=== PATIENT | male | born 1955 | race Caucasian/White ===

== ENCOUNTER → 2016-10-29 | Outpatient (CLI) | payer OTHER ==
[~2016-10-29] MED LIST: BUPR-79 PO; CLC6 PO; OXYC-57 PO
[2016-10-29 13:20] LABS: MANUAL MICROSCOPIC REQUIRED? NO; REVIEW REQ? NO; URINE APPEARANCE CLEAR (CLEAR); URINE BILIRUBIN NEG (NEG); URINE COLOR YELLOW; URINE EPITHELIAL CELL AUTO 0-5 /lpf (0-5); URINE NITRITE NEG (NEG); URINE SPECIFIC GRAVITY 1.021 (1.000-1.030); UROBILINOGEN NEG (NEG)
[2016-10-29 13:46] LABS: CHOLESTEROL/HDL RATIO 3.3; PROSTATE SPECIFIC ANTIGEN 0.521 ng/ml (0.000-4.000)
== END | disposition home or self-care (01) ==
LOC: C.LAB1850 12:10
PROVIDERS: ATTEND Family Medicine
DX: Z13.220 Encounter for screening for lipoid disorders (principal); R39.9 Unspecified symptoms and signs involving the genitourinary system

== ENCOUNTER → 2016-11-22 | Outpatient (CLI) | payer OTHER ==
[2016-11-22 16:52] LABS: BASO % 0.5 %; BASO ABS # 0.04 K/uL (0-0.2); COMPLETE YES; EOS % 3.4 %; HEMATOCRIT 44.6 % (42-52); IG% 0.1 %; LYMPH % 35.1 %; LYMPH ABS # 2.56 K/uL (1.2-3.4); MEAN CELL VOLUME 87.6 fL (80-100); MEAN CORPUSCULAR HEMOGLOBIN 30.1 pg (25-34); MEAN CORPUSCULAR HGB CONC 34.3 g/dl (32-36); MEAN PLATELET VOLUME 9.6 fL (7.4-10.4); MONO % 9.2 %; NEUT % 51.7 %; PLATELET COUNT 363 K/uL (130-400); RED BLOOD COUNT 5.09 M/uL (4.7-6.1); WHITE BLOOD COUNT 7.29 K/uL (4.8-10.8)
[2016-11-22 16:59] LABS: ALT/SGPT 30 U/L (12-78); AST/SGOT 11 U/L (15-37); BLOOD UREA NITROGEN 21 mg/dl (7-18); CALCIUM 9.6 mg/dl (8.5-10.1); CARBON DIOXIDE 30 mmol/L (21-32); CHLORIDE 109 mmol/L (98-107); GLUCOSE 104 mg/dl (70-99); POTASSIUM 4.5 mmol/L (3.5-5.1); SODIUM 143 mmol/L (136-145)
[2016-11-22 17:02] LABS: ALKALINE PHOSPHATASE 44 U/L (45-117)
[2016-11-26 11:08] LABS: HEPATITIS C VIRAL RNA BY PCR <15 NOT DETECTED IU/ML (<15); HEPATITIS C VIRAL RNA(LOG) PCR <1.18 NOT DETECTED LOG IU/ML (<1.18)
== END | disposition home or self-care (01) ==
LOC: C.LABBC 13:14
PROVIDERS: ATTEND Internal Medicine Infectious Disease
DX: B18.2 Chronic viral hepatitis C (principal)

== ENCOUNTER → 2017-06-23 | Outpatient (CLI) | payer OTHER ==
--- NOTE | 2017-06-23 14:52 | DIAGNOSTIC IMAGING REPORT ---
L RIBS UNILATERAL WITH PA CHEST CLINICAL HISTORY: RIB PAIN ON LEFT SIDE,Z00.00 B18.2 CJ43.9 COMPARISON STUDY: None FINDINGS: Negative study. Left ribs are unremarkable. Lungs are clear. IMPRESSION: No acute process. Negative left ribs. No acute process of the chest. The above report was generated using voice recognition software. It may contain grammatical, syntax or spelling errors. Electronically signed by: Tucker Nam M.D. 06/23/2017 2:50 PM Dictated Date/Time: 06/23/2017 2:48 PM
[2017-06-23 17:29] LABS: BLOOD UREA NITROGEN 19 mg/dl (7-18); BUN/CREATININE RATIO 20.2 (10-20); CALCIUM 9.7 mg/dl (8.5-10.1); CARBON DIOXIDE 26 mmol/L (21-32); CHLORIDE 107 mmol/L (98-107); CHOLESTEROL 169 mg/dl (0-200); CREATININE 0.95 mg/dl (0.60-1.40); GLUCOSE 84 mg/dl (70-99); SODIUM 141 mmol/L (136-145)
[2017-06-23 17:33] LABS: HDL CHOLESTEROL 42 mg/dl; LDL CHOLESTEROL CALCULATED 106 mg/dl; TRIGLYCERIDES 103 mg/dl (0-150); VERY LOW DENSITY LIPOPROT CALC 21 mg/dl
[2017-06-26 15:08] LABS: HEPATITIS C VIRAL RNA BY PCR <15 NOT DETECTED IU/ML (<15); HEPATITIS C VIRAL RNA(LOG) PCR <1.18 NOT DETECTED LOG IU/ML (<1.18)
== END | disposition home or self-care (01) ==
LOC: C.RADBC 13:22
PROVIDERS: ATTEND Physician Assistant Medical
DX: R07.81 Pleurodynia (principal)

== ENCOUNTER → 2017-10-30 | Outpatient (CLI) | payer OTHER ==
--- NOTE | 2017-10-30 10:16 | DIAGNOSTIC IMAGING REPORT ---
ABDOMEN FOR HERNIA CLINICAL HISTORY: 62 years-old Male presenting with RECURRENT UPPER ABD PAIN. TECHNIQUE: Real-time grayscale ultrasound imaging of the abdominal wall was performed for a focused evaluation for ventral hernia. COMPARISON: None. FINDINGS: No sonographic evidence of mass, peritoneal defect, hernia, or intramuscular collection at the site of clinical interest in the left subcostal region. IMPRESSION: 1. No sonographic evidence of ventral hernia at the site of clinical concern. Electronically signed by: Freddie Nguyen M.D. 10/30/2017 10:15 AM Dictated Date/Time: 10/30/2017 10:14 AM
== END | disposition home or self-care (01) ==
LOC: C.ULTRBC 09:46
PROVIDERS: ATTEND Physician Assistant Medical
DX: R10.10 Upper abdominal pain, unspecified (principal)

== ENCOUNTER 2024-07-23 14:12 | Inpatient (IN) ==
--- NOTE | 2024-07-23 14:29 | Emergency Department Note ---
Impression & Plan Closed rib fracture, Calcaneus fracture, right, Fall, Costochondral chest pain ED Provider Note ED Provider Note NAME: AZAR HEIN Sr AGE:68 SEX: Male : 1955 ARRIVES VIA: EMS INFORMANT: Patient ED PROVIDER(s): Ying Araiza DO CHIEF COMPLAINT: Fall off ladder, right ankle pain HPI: This is a 68-year-old male presents emergency department due to concern for injuries after an accidental fall off a ladder. Patient states he was trying to lift a piece of plywood onto the roof and fell from the top of the ladder approximately 8-10 feet up. He states his right foot and ankle struck first, he then landed on his right side. He denies striking his head or losing consciousness. He states the piece of plywood did not land on him nor did the letter. He states he also has pain along the right lower ribs however no difficulty breathing. Patient denies any use of antiplatelet or anticoagulation medication. He denies neck or back pain. He does have prior history of neck problems requiring surgery. He denies any pain to the upper extremities, abdomen, hips, or left lower extremity. PAST MEDICAL HISTORY:See Below PAST SURGICAL HISTORY:See Below FAMILY HISTORY:See Below SOCIAL HISTORY:See Below HOME MEDICATIONS:See Below ALLERGIES:See Below VITALS:See Below PHYSICAL EXAMINATION: GENERAL: alert, well appearing, well nourished, no distress, non-toxic HEAD: nc/at, no meadows signs, no raccoon eyes EYE EXAM: normal conjunctiva, PERRL and EOM's grossly intact OROPHARYNX: no exudate, no erythema, lips, buccal mucosa, and tongue normal and mucous membranes are moist NECK: supple, no nuchal rigidity, no adenopathy, non-tender, FROM LUNGS: Clear to auscultation. Normal chest wall mechanics, no w/r/r HEART: no murmurs, S1 normal and S2 normal CHEST WALL: Increased prominence noted along the right inferior sternal border which is tender to palpation, patient also with tenderness with palpation along the right anterior inferior ribs, no overlying crepitus, no ecchymosis, no step- off ABDOMEN: abdomen soft, non-tender, normo-active bowel sounds, no masses, no rebound or guarding. PELVIS: Stable to compression, nontender with palpation BACK: Back is symmetrical on inspection and there is no deformity, no midline tenderness, no CVA tenderness. SKIN: no rashes, petechiae, orbruising UPPER EXTREMITIES: upper extremities are grossly normal. FROM, nml pulses b/l. LOWER EXTREMITIES: No pitting edema. FROM, nml pulses b/l. NEURO EXAM: Normal sensorium, cranial nerves II-XII grossly intact, normal speech, no facial droop,nogross weakness of arms, no gross weakness of legs. Gross sensation intact. No ataxia. Vital Signs: reviewed and remarkable Differential Diagnosis: ICH, CHI, fracture, contusion, sprain, strain, laceration, abrasions, hemoperitoneum, occult spine injury, acute ligamentous injury, retroperitoneal bleeding, as well as others were considered MEDICAL DECISION MAKING: This is a 68-year-old male who presents emergency department due to concern for injuries following a fall 8 to 10 feet from the top of the ladder. Patient was afebrile and vital signs stable. Initial pain to the chest as well as to the right ankle/foot. Labs drawn and sent, IV established, EKG and x-rays performed at bedside interpreted by me and patient monitored on telemetry. Patient was given IV morphine for pain. Initial x-rays revealed calcaneal fracture of the right foot, and possible right rib fracture. Due to concern for mechanism and risk of injury, he was sent for additional CT imaging. CTs revealed costochondral fracture anteriorly and isolated single right rib fracture. No other acute abnormalities noted on CT imaging. Patient placed in a posterior and sugar-tong splint on the right after discussion with on-call orthopedics via [place] text. Patient given additional IV Tylenol here and did require additional doses of IV morphine for pain control. Given patient was to be nonweightbearing, we did attempt to the patient stand and use crutches. Patient unable to do so due to severity of pain. We discussed inpatient pain management and possible referral for inpatient rehab in the short-term given his injuries. He and who had presented to bedside in the interim were in agreement. Case discussed with the hospitalist team for additional evaluation and management. At this time I have a low suspicion for any additional occult traumatic injury. Consultation(s): 1746: Discussed with Dr. Rodriguez via [place] text, recommends posterior and sugar-tong splinting and nonweightbearing. 1936: Discussed with Dr. Del Valle, [facility] hospitalist team, for additional evaluation and management. ER Treatment Provided: See below Diagnostics Interpreted By Me: -ECG: Normal sinus at 70, first-degree AV block, normal axis, normal intervals, no acute ST/T wave changes -Cardiac Monitoring: An order was placed for continuous cardiac monitoring. The monitor shows a rate of 76 with normal sinus rhythm. -Laboratory studies: As stated above and show below. -Imaging studies: xr Right ankle: Calcaneal fracture Triage Nursing Note Reviewed Prior/Outside Records Reviewed Critical Care: Critical care of 40 min performed to assess and manage high likelihood of life-threatening trauma, involving labs and imaging performed with assessment to evaluate chest pain and right foot pain following a fall diagnosis with frequent reassessment. This time includes bedside time, treatment discussions with patient/family/consultants, documentation time and excludes procedure time. Past Med/Surg History Problem List (Updated 07/23/24 @ 20:39 by Ying Araiza DO) Costochondral chest pain (Acute) Fall (Acute) Calcaneus fracture, right (Acute) Closed rib fracture (Acute) DM type 2 (diabetes mellitus, type 2) (~07/2022) Dyslipidemia COPD with emphysema Bullous emphysema Coronary artery calcification Noted incidentally on CT of chest in 2019 (monitoring of pulm nodules) RHODES (dyspnea on exertion) Impotence, organic Pulmonary nodule Hypersomnia BPH w urinary obs/LUTS Microalbuminuria Medical History Emphysema lung DM type 2 (diabetes mellitus, type 2) (~07/2022) History of COVID-19 Rectal prolapse Internal hemorrhoids Pain, foot, chronic Venous insufficiency of both lower extremities History of tobacco use Dyslipidemia Coronary artery calcification Pericarditis (2016) Degenerative disc disease Cervical spondylosis Chronic viral hepatitis C Peyronie's disease Tinnitus Surgical History History of right cataract surgery H/O umbilical hernia repair (12/26/21) History of tooth extraction History of colonoscopy History of tonsillectomy History of fusion of cervical spine History of arthroscopy of left knee Family History Father Diabetes Heart disease, Onset Age: 56 Cardiac disorder Hypertension Brother Diabetes Hypertension Mother Hypertension Rectal prolapse Other No family history of adverse response to anesthesia Denies family history of Prostate cancer Colorectal cancer Social History Smoking Status: Former smoker Tobacco Type: Cigarettes Age Started Using Tobacco: 17; Age Quit Using Tobacco: 60; packs per day: 1; Second Hand Exposure: No (parents smoked); Do You Dip or Chew Tobacco: No; Hx Alcohol Use: Yes Alcohol type: beer, wine and hard liquor Alcohol Intake Frequency: 2-3 x/Week Hx Substance Use: No Preferred Language: Indonesian Communication Ability: Effective Visual Impairment: Diminished Hearing Ability: Normal Director Of Clinical Education Required: No Beliefs That Will Affect Care: None marital status: Current Living Situation: Family current occupational status: retired How many Children do You have: 1 Feels Safe at Home: Yes Childhood Exposure to Second-Hand Smoke: Yes Diet: regular caffeine: No during the past year weight has: increased > 10 lbs Dental Care, Regularly: Yes Physical Activity Frequency: Does not Exercise Seatbelt Use: always Sunscreen Use: No Do you think of yourself as: straight/heterosexual Assistive Devices: Denture - Upper, Denture - Lower and Glasses Allergies Allergies Allergy/AdvReac Type Severity Reaction Status Date / Time bee venom protein (honey bee) Allergy Severe Anaphylaxis--WASP Verified 03/04/24 09:07 & YELLOW JACKETS No Known Drug Allergies Allergy Verified 03/04/24 09:07 Home Meds Home Medications Medication Instructions Recorded Confirmed metformin 500 mg tablet,extended 500 mg PO DAILY 09/05/23 07/23/24 release 24 hr potassium gluconate 600 mg (99 mg) 600 mg PO DAILY 03/04/24 07/23/24 tablet semaglutide 0.25 mg or 0.5 mg (2 1 mg subcut Q7D 03/04/24 07/23/24 mg/3 mL) subcutaneous pen injector (Ozempic) Vitamin D3 1 tab PO DAILY 07/23/24 07/23/24 tamsulosin 0.4 mg capsule (Flomax) 0.8 mg PO QAM 07/23/24 07/23/24 Previous Rx's Medication Instructions Recorded atorvastatin 10 mg tablet 10 mg PO QAM #90 tabs 01/09/23 epinephrine 0.3 mg/0.3 mL 0.3 mg (0.3 mL) IM Q10M PRN 11/04/22 injection, auto-injector (EpiPen) Anaphylaxis #2 ea omeprazole 20 mg capsule,delayed 20 mg PO DAILY #90 caps 05/13/23 release tiotropium 2.5 mcg-olodaterol 2.5 2 puff inhalation DAILY #4 grams 10/02/23 mcg/actuation mist for inhalation (Stiolto Respimat) Results & Data (ED) Vital Signs Vital Signs - 24 hr 07/23/24 14:19 07/23/24 14:25 07/23/24 16:00 Pulse Rate 74 Pulse Rate [Finger] 74 Pulse Rhythm Regular Pulse Rhythm [Finger] Regular Pulse Strength Normal Pulse Strength [Finger] Normal Respiratory Rate 18 18 18 Respiratory Effort / Characteristics Non-Labored Spontaneous Non-Labored Spontaneous Non-Labored Spontaneous Respiratory Depth Normal Normal Normal Blood Pressure 138/98 Blood Pressure [Left Arm] 138/98 139/94 Blood Pressure Mean 111 Blood Pressure Mean [Left Arm] 111 109 Blood Pressure Position Lying Blood Pressure Position [Left Arm] Lying Sitting Pulse Oximetry 95 95 95 Oxygen Delivery Method Room Air Room Air Room Air Sepsis Recent Fever Within 48 Hours No Sepsis New/Unexplained Change in Mental Status N/A Sepsis Action Taken by Nursing No Action Required 07/23/24 17:30 07/23/24 19:00 07/23/24 20:06 Pulse Rate Pulse Rate [Finger] 72 74 77 Pulse Rhythm Pulse Rhythm [Finger] Regular Regular Pulse Strength Pulse Strength [Finger] Normal Normal Respiratory Rate 19 18 18 Respiratory Effort / Characteristics Non-Labored Spontaneous Non-Labored Spontaneous Respiratory Depth Normal Normal Blood Pressure Blood Pressure [Left Arm] 134/92 162/99 H 135/91 Blood Pressure Mean Blood Pressure Mean [Left Arm] 106 120 105 Blood Pressure Position Blood Pressure Position [Left Arm] Lying Lying Pulse Oximetry 93 96 Oxygen Delivery Method Room Air Room Air Sepsis Recent Fever Within 48 Hours Sepsis New/Unexplained Change in Mental Status Sepsis Action Taken by Nursing Laboratory Data 07/23/24 14:35 07/23/24 14:35 Lab Results 07/23/24 07/23/24 Range/Units 14:35 14:43 WBC 8.89 (4.8-10.8) K/ul RBC 5.06 (4.70-6.10) M/uL Hgb 14.6 (14.0-18.0) g/dl POC Hgb 14.3 (14.0-18.0) g/dl Hct 43.8 (42.0-52.0) % POC Hct 42 (42-52) % MCV 86.6 (80.0-100.0) fL MCH 28.9 (25.0-34.0) pg MCHC 33.3 (32.0-36.0) g/dL RDW Std Deviation 40.2 (36.4-46.3) fL RDW Coeff of Marlena 12.8 (11.5-14.5) % Plt Count 346 (130-400) K/uL MPV 9.7 (9.4-12.4) fL Immature Gran % (Auto) 0.3 % Neut % (Auto) 72.7 % Lymph % (Auto) 17.9 % [place] % (Auto) 6.0 % Eos % (Auto) 2.4 % Baso % (Auto) 0.7 % Neut # (Auto) 6.47 (1.40-6.50) K/uL Lymph # (Auto) 1.59 (1.20-3.40) K/uL [place] # (Auto) 0.53 (0.11-0.59) K/uL Eos # (Auto) 0.21 (0.00-0.50) K/uL Baso # (Auto) 0.06 (0.00-0.20) K/uL Immature Gran # (Auto) 0.03 (0.01-0.20) K/uL PT 10.9 (9.0-12.0) Seconds INR 1.0 (0.9-1.1) POC Sodium 141 (135-144) mmol/L Sodium 140 (136-145) mmol/L POC Potassium 4.4 (3.3-5.0) mmol/L Potassium 4.4 (3.5-5.1) mmol/L POC Chloride 105 (101-112) mmol/L Chloride 107 (98-107) mmol/L Carbon Dioxide 26 (21-32) mmol/L POC Total CO2 24 (24-31) mmol/L Anion Gap 7 (3-11) POC Anion Gap 18.0 (16-25) mmol/L POC BUN 23 H (7-18) mg/dl BUN 22 (6-23) mg/dl Creatinine 1.12 (0.6-1.4) mg/dl POC Creatinine 1.3 (0.6-1.3) mg/dl Est Cr Clr Drug Dosing 75.4 ml/min eGFR 72.45 BUN/Creatinine Ratio 19.6 (10-20) Glucose 129 H (70-99(Fasting)) mg/dl POC Glucose (other) 135 H (70-99) mg/dl Calcium 10.2 (8.6-10.3) mg/dl POC Ioniz Calcium Kristina 1.27 (1.12-1.32) mmol/l Total Bilirubin 0.7 (0.2-1.0) mg/dl AST 20 (13-39) U/L ALT 24 (7-52) U/L Alkaline Phosphatase 50 (34-104) U/L Troponin I High Sens 5.5 (0-20) pg/ml Total Protein 7.1 (6.0-8.3) gm/dl Albumin 4.4 (3.4-5.0) gm/dl Globulin 2.7 (2.5-4.0) gm/dl Albumin/Globulin Ratio 1.6 (0.9-2) Administered Medications Discontinued Medications Acetaminophen (Ofirmev) 1,000 mg in 100 mls @ 400 mls/hr IV NOW STA Stop: 07/23/24 14:48 Last Infusion: 07/23/24 15:39 Dose: Infused Documented By: Admin: 07/23/24 15:10 Dose: 400 mls/hr Documented By: CHRIS Ioversol (Optiray 320 100ml) 93 ml IV ONCE ONE Stop: 07/23/24 16:07 Last Admin: 07/23/24 16:06 Dose: 93 ml Documented By: VIKKI Lidocaine (Lidocaine 5% 1 Patch) 1 patch TD NOW STA Stop: 07/23/24 17:24 Last Admin: 07/23/24 17:28 Dose: 1 patch Documented By: ML Morphine Sulfate (Morphine Sulfate 4 Mg/Ml 1 Ml Carp\Vial) 4 mg IV NOW STA Stop: 07/23/24 17:21 Last Admin: 07/23/24 17:30 Dose: 4 mg Documented By: ML Morphine Sulfate (Morphine Sulfate 4 Mg/Ml 1 Ml Carp\Vial) 4 mg IV NOW STA Stop: 07/23/24 19:35 Last Admin: 07/23/24 19:53 Dose: 4 mg Documented By: EJV Imaging Data Radiologist's Impression: Ankle X-Ray 07/23/24 14:26 XR ankle RT min 3V routine CLINICAL HISTORY: trauma TECHNIQUE: 3 views of the right ankle were obtained. Comparison: None available at the time of this dictation. FINDINGS: There is a fracture of the calcaneus possibly involving the posterior talocalcaneal joint. The joint spaces are well preserved. Soft tissue swelling is seen about the ankle. IMPRESSION: Fracture of the calcaneus with associated soft tissue swelling. The malleoli appear intact. ACT 112: Negative or not required by law. Electronically signed by: Orlando Mcleod M.D. 07/23/2024 3:19 PM Pelvis X-Ray 07/23/24 14:26 XR pelvis 1-2V routine CLINICAL HISTORY: trauma COMPARISON: None FINDINGS: Sacroiliac joints and symphysis pubis are intact. There are no fractures within the pelvis or hips. There are no osseous lesions. Hip joint spaces are preserved. There is a moderate amount of stool within the rectum. IMPRESSION: No fractures within the pelvis or hips. ACT 112: Negative or not required by law. Electronically signed by: Vinicio Adame M.D. 07/23/2024 3:15 PM Ribs w/Chest X-Ray 07/23/24 14:26 AP CHEST WITH RIGHT-SIDED RIB SERIES CLINICAL HISTORY: Trauma. FINDINGS: An AP chest radiograph with 6 additional views from a right-sided rib series is compared to study dated 05/06/2022 and correlated with chest CT dated 07/21/2023. The AP view is significantly degraded by apical lordotic positioning. The heart is enlarged. The pulmonary vasculature is noncongested. Emphysema and chronic interstitial thickening is similar to previous. There is mild bibasilar scarring/atelectasis. No airspace consolidation or pleural effusion is identified. No pneumothorax is seen. The skeletal structures are osteopenic. There is acute appearing fracture of the right anterior 8th rib. No additional findings are suspicious for acute/displaced right-sided rib fracture on rib series. There is a chronic/healed fracture of the right anterior 9th rib. The remainder of the bony thorax is grossly intact. Fusion hardware is seen in the lower cervical spine. IMPRESSION: 1. Cardiomegaly and emphysema with no acute cardiopulmonary abnormality identified. 2. Acute appearing fracture of the right anterior 8th rib. Correlate for point tenderness. ACT 112: Negative or not required by law. Electronically signed by: Deacon Stubbs M.D. 07/23/2024 3:23 PM Abdomen/Pelvis CT 07/23/24 15:06 CT OF THE ABDOMEN AND PELVIS WITH CONTRAST CLINICAL HISTORY: trauma COMPARISON STUDY: Right upper quadrant ultrasound December 20, 2015. TECHNIQUE: Following IV administration of 93 mL of Optiray, axial images of the abdomen and pelvis were obtained from the lung bases to the proximal femurs. Images were reviewed in the axial, sagittal, and coronal planes. IV contrast was administered without complication. Automated exposure control was utilized for the study. A dose lowering technique was utilized adhering to the principles of ALARA. FINDINGS: An acute nondisplaced fracture of the anterior right eighth rib as well as several acute nondisplaced fractures of the right costal cartilages are better depicted on the chest CT. There is hepatic steatosis. No hemoperitoneum or pneumoperitoneum is present. There is no evidence for traumatic injury to the liver, spleen, adrenal glands, kidneys or pancreas. Water attenuation bilateral renal lesions represent cysts. There is no free fluid. No evidence for a bowel obstruction. Colonic diverticulosis without evidence for acute diverticulitis. The appendix is normal. No acute lumbar spine, pelvis or hip fractures are identified anterolisthesis of L5 on S1 is due to bilateral L5 pars defects. This is chronic. IMPRESSION: 1. No evidence for acute traumatic injury to the solid abdominal viscera. 2. Acute nondisplaced fracture of the anterior right eighth rib. Several acute nondisplaced fractures of right costal cartilages. These findings are better depicted on the chest CT which will be reported separately. ACT 112: Negative or not required by law. Electronically signed by: Vinicio Adame M.D. 07/23/2024 4:[address] 07/23/24 15:06 CT SCAN OF THE CERVICAL SPINE CLINICAL HISTORY: Trauma. COMPARISON STUDY: CT of the cervical spine dated 05/23/2024. TECHNIQUE: CT scan of the cervical spine is performed from the skull base to the upper thoracic spine. Images are reviewed in the axial, sagittal, and coronal planes. IV contrast was not administered for this examination. A dose lowering technique was utilized adhering to the principles of ALARA. FINDINGS: Skeletal structures: The skeletal structures are osteopenic. There is no evidence of fracture or subluxation involving the cervical spine. Vertebral body height and alignment are maintained. There is straightening of the cervical lordosis. Postsurgical change from anterior fusion is seen at C5-C6 with near complete bony incorporation at this level. The odontoid process and lateral masses are intact. The atlantoaxial articulation is preserved no destructive degenerative change. The spinous processes appear intact. Intervertebral discs: There is moderate moderate disc space narrowing at C6-C7. Mild narrowing seen at the remaining cervical levels. Central canal: Posterior disc osteophyte complexes at C5-C6 and C6-C7 may contribute to mild acquired compromise of the central canal. Soft tissues: The prevertebral and paraspinous soft tissues are within normal limits. There are calcified sialoliths noted in the parotid glands. Calvarium: The visualized calvarium at the skull base appears intact. Brain parenchyma: Partially visualized brain parenchyma at the skull base is within normal limits. Sinuses and mastoids: There is trace mucosal thickening within the maxillary antra. There is a trace right mastoid effusion. The left mastoid air cells are well pneumatized. Lung apices: Emphysematous change is noted at the apices. IMPRESSION: 1. There is no evidence of cervical spine fracture or subluxation. 2. Osteopenia with postsurgical and spondylotic change as above. 3. Emphysema ACT 112: Negative or not required by law. Electronically signed by: Deacon Stubbs M.D. 07/23/2024 4:[address] 07/23/24 15:06 CT OF THE CHEST WITH IV CONTRAST CLINICAL HISTORY: trauma COMPARISON STUDY: Lung screening CT July 21, 2023. Chest radiograph and right rib series performed earlier today. TECHNIQUE: Following IV administration of 93 mL of Optiray, helical axial images of the chest were obtained. Sagittal and coronal reconstructions were viewed as well as maximal intensity projections on an independent 3-D workstation. Automated exposure control was utilized for the study. A dose lowering technique was utilized adhering to the principles of ALARA. FINDINGS: There is no evidence for traumatic injury to the thoracic aorta. There is no pericardial effusion. No thoracic lymphadenopathy is present. There is no pneumothorax or pleural effusion. A 4 mm right lower lobe nodule on image 186 of 261 is unchanged from earlier exams. There is no pulmonary contusion. Emphysema is again noted. There is no acute thoracic spine fracture. There is an age indeterminate nondisplaced anterior left sixth rib fracture. There is an acute nondisplaced anterior right eighth rib fracture. There are acute fractures of the right fifth, sixth and seventh costal cartilages. Abdomen and pelvis CT will be reported separately. IMPRESSION: 1. No evidence for traumatic injury to the thoracic aorta. 2. Acute nondisplaced fracture of the anterior right eighth rib. Acute nondisplaced fractures of the right fifth, sixth and seventh costal cartilages. No pneumothorax. 3. Age indeterminate nondisplaced anterior left sixth rib fracture. 4. Emphysema. ACT 112: Negative or not required by law. Electronically signed by: Vinicio Adame M.D. 07/23/2024 4:[address] 07/23/24 15:06 CT OF THE HEAD WITHOUT CONTRAST CLINICAL HISTORY: trauma COMPARISON STUDY: Head CT May 23, 2024. CT DOSE: 3599.23 mGy.cm TECHNIQUE: Helical axial images of the head were obtained without IV contrast. Automated exposure control was utilized for the study. A dose lowering technique was utilized adhering to the principles of ALARA. FINDINGS: No acute intracranial hemorrhage, midline shift or mass effect is present. Slight prominence of the extra-axial spaces is unchanged since prior head CT. A hypodense focus within the right basal ganglia is unchanged. This favors an old infarct. The ventricular system is unremarkable. The basal cisterns are patent. No extra-axial collections are present. There are no findings to suggest acute dural sinus thrombosis or acute territorial infarct. No significant calvarial abnormalities are present. Visualized portions of the sinuses and mastoid air cells are clear. IMPRESSION: 1. No acute intracranial findings. No change in appearance of the brain. 2. No calvarial fractures. ACT 112: Negative or not required by law. Electronically signed by: Vinicio Adame M.D. 07/23/2024 4:[address] 07/23/24 15:06 CT lumbar spine w con CLINICAL HISTORY: trauma COMPARISON STUDY: No previous studies for comparison. TECHNIQUE: Axial images of the lumbar spine were obtained. Sagittal and coronal reconstructions were viewed. Automated exposure control was utilized for the study. A dose lowering technique was utilized adhering to the principles of ALARA. FINDINGS: There is 9 mm anterolisthesis of L5 on S1 due to bilateral L5 pars defects. Vertebral body heights are maintained. There are no lumbar spine fractures. There are no osseous lesions. Moderate multilevel facet arthrosis is present. There is severe disc space narrowing with osteophytosis and vacuum disc phenomenon at L5-S1. Please note that the abdomen and pelvis CT will be reported separately. IMPRESSION: 1. No lumbar spine fractures. 2. 9 mm of anterolisthesis of L5 on S1 due to bilateral L5 pars defects. ACT 112: Negative or not required by law. Electronically signed by: Vinicio Adame M.D. 07/23/2024 4:56 PM Knee X-Ray 07/23/24 17:20 XR knee LT 1 or 2V routine CLINICAL HISTORY: trauma, pain COMPARISON: None FINDINGS: Alignment of the left knee is anatomic. There is no acute fracture. There is no joint effusion. Mild left knee osteophytosis is present. There is suspected mild patellofemoral compartment joint space narrowing. IMPRESSION: No fractures within the left knee. No left knee joint effusion. ACT 112: Negative or not required by law. Electronically signed by: Vinicio Adame M.D. 07/23/2024 6:13 PM Tibia/Fibula X-Ray 07/23/24 17:20 XR tibia fibula LT 2V CLINICAL HISTORY: trauma, pain COMPARISON: None FINDINGS: There are no fractures within the left tibia or fibula. There are no osseous lesions. Please note that the left knee radiographs will be reported separately. IMPRESSION: No fractures within the left tibia or fibula. ACT 112: Negative or not required by law. Electronically signed by: Vinicio Adame M.D. 07/23/2024 6:18 PM Discharge Plan Visit Data Chief Complaint: Fall Stated Complaint: Fall ED Provider: Ying Araiza Discharge Problem: Closed rib fracture, Calcaneus fracture, right, Fall, Costochondral chest pain Forms Stand Alone Forms: [employer] Prescriptions Prescriptions: No Action atorvastatin 10 mg tablet 10 mg PO QAM Qty: 90 3RF epinephrine [EpiPen] 0.3 mg/0.3 mL auto-injector 0.3 mg IM Q10M PRN (Reason: Anaphylaxis) Qty: 2 3RF omeprazole 20 mg capsule,delayed release(DR/EC) 20 mg PO DAILY Qty: 90 1RF Stiolto Respimat 2.5-2.5 mcg/actuation mist 2 puff inhalation DAILY Qty: 4 12RF metformin 500 mg tablet extended release 24 hr 500 mg PO DAILY Ozempic 0.25 mg or 0.5 mg (2 mg/3 mL) pen injector 1 mg subcut Q7D Rx Instructions: Tuesdays at 10 am potassium gluconate 600 mg (99 mg) tablet 600 mg PO DAILY Rx Instructions: Take 1 po daily tamsulosin [Flomax] 0.4 mg Capsule 0.8 mg PO QAM Vitamin D3 1 tab PO DAILY Referrals Referrals: Kiera Pang PA-C [Primary Care Provider] -
[2024-07-23 14:55] LABS: iSTAT Creatinine 1.3 mg/dl (0.6-1.3); iSTAT Hemoglobin 14.3 g/dl (14.0-18.0); iSTAT Ionized Calcium 1.27 mmol/l (1.12-1.32); iSTAT Potassium 4.4 mmol/L (3.3-5.0)
[2024-07-23] MEDS: ACETAMINOPHEN 1,000 MG/100 ML VIAL IV STA (15:10)
--- NOTE | 2024-07-23 15:17 | XRay Report ---
XR pelvis 1-2V routine CLINICAL HISTORY: trauma COMPARISON: None FINDINGS: Sacroiliac joints and symphysis pubis are intact. There are no fractures within the pelvis or hips. There are no osseous lesions. Hip joint spaces are preserved. There is a moderate amount of stool within the rectum. IMPRESSION: No fractures within the pelvis or hips. ACT 112: Negative or not required by law. Electronically signed by: Vinicio Adame M.D. 07/23/2024 3:15 PM
--- NOTE | 2024-07-23 15:20 | XRay Report ---
XR ankle RT min 3V routine CLINICAL HISTORY: trauma TECHNIQUE: 3 views of the right ankle were obtained. Comparison: None available at the time of this dictation. FINDINGS: There is a fracture of the calcaneus possibly involving the posterior talocalcaneal joint. The joint spaces are well preserved. Soft tissue swelling is seen about the ankle. IMPRESSION: Fracture of the calcaneus with associated soft tissue swelling. The malleoli appear intact. ACT 112: Negative or not required by law. Electronically signed by: Orlando Mcleod M.D. 07/23/2024 3:19 PM
--- NOTE | 2024-07-23 15:24 | XRay Report ---
AP CHEST WITH RIGHT-SIDED RIB SERIES CLINICAL HISTORY: Trauma. FINDINGS: An AP chest radiograph with 6 additional views from a right-sided rib series is compared to study dated 05/06/2022 and correlated with chest CT dated 07/21/2023. The AP view is significantly deg raded by apical lordotic positioning. The heart is enlarged. The pulmonary vasculature is noncongeste d. Emphysema and chronic interstitial thickening is similar to previous. There is mild bibasilar scar ring/atelectasis. No airspace consolidation or pleural effusion is identified. No pneumothorax is see n. The skeletal structures are osteopenic. There is acute appearing fracture of the right anterior 8t h rib. No additional findings are suspicious for acute/displaced right-sided rib fracture on rib seri es. There is a chronic/healed fracture of the right anterior 9th rib. The remainder of the bony thora x is grossly intact. Fusion hardware is seen in the lower cervical spine. IMPRESSION: 1. Cardiomegaly and emphysema with no acute cardiopulmonary abnormality identified. 2. Acute appearing fracture of the right anterior 8th rib. Correlate for point tenderness. ACT 112: Negative or not required by law. Electronically signed by: Deacon Stubbs M.D. 07/23/2024 3:23 PM
[2024-07-23] MEDS: OPTIRAY 320 100ml IV ONE (16:06)
--- NOTE | 2024-07-23 16:27 | CT Scan Report ---
CT OF THE HEAD WITHOUT CONTRAST CLINICAL HISTORY: trauma COMPARISON STUDY: Head CT May 23, 2024. CT DOSE: 3599.23 mGy.cm TECHNIQUE: Helical axial images of the head were obtained without IV contrast. Automated exposure con trol was utilized for the study. A dose lowering technique was utilized adhering to the principles o f ALARA. FINDINGS: No acute intracranial hemorrhage, midline shift or mass effect is present. Slight prominenc e of the extra-axial spaces is unchanged since prior head CT. A hypodense focus within the right basa l ganglia is unchanged. This favors an old infarct. The ventricular system is unremarkable. The basal cisterns are patent. No extra-axial collections are present. There are no findings to suggest acute dural sinus thrombosis or acute territorial infarct. No significant calvarial abnormalities are prese nt. Visualized portions of the sinuses and mastoid air cells are clear. IMPRESSION: 1. No acute intracranial findings. No change in appearance of the brain. 2. No calvarial fractures. ACT 112: Negative or not required by law. Electronically signed by: Vinicio Adame M.D. 07/23/2024 4:26 PM
--- NOTE | 2024-07-23 16:28 | CT Scan Report ---
CT SCAN OF THE CERVICAL SPINE CLINICAL HISTORY: Trauma. COMPARISON STUDY: CT of the cervical spine dated 05/23/2024. TECHNIQUE: CT scan of the cervical spine is performed from the skull base to the upper thoracic spine . Images are reviewed in the axial, sagittal, and coronal planes. IV contrast was not administered fo r this examination. A dose lowering technique was utilized adhering to the principles of ALARA. FINDINGS: Skeletal structures: The skeletal structures are osteopenic. There is no evidence of fracture or subl uxation involving the cervical spine. Vertebral body height and alignment are maintained. There is st raightening of the cervical lordosis. Postsurgical change from anterior fusion is seen at C5-C6 with near complete bony incorporation at this level. The odontoid process and lateral masses are intact. T he atlantoaxial articulation is preserved no destructive degenerative change. The spinous processes a ppear intact. Intervertebral discs: There is moderate moderate disc space narrowing at C6-C7. Mild narrowing seen a t the remaining cervical levels. Central canal: Posterior disc osteophyte complexes at C5-C6 and C6-C7 may contribute to mild acquired compromise of the central canal. Soft tissues: The prevertebral and paraspinous soft tissues are within normal limits. There are calci fied sialoliths noted in the parotid glands. Calvarium: The visualized calvarium at the skull base appears intact. Brain parenchyma: Partially visualized brain parenchyma at the skull base is within normal limits. Sinuses and mastoids: There is trace mucosal thickening within the maxillary antra. There is a trace right mastoid effusion. The left mastoid air cells are well pneumatized. Lung apices: Emphysematous change is noted at the apices. IMPRESSION: 1. There is no evidence of cervical spine fracture or subluxation. 2. Osteopenia with postsurgical and spondylotic change as above. 3. Emphysema ACT 112: Negative or not required by law. Electronically signed by: Deacon Stubbs M.D. 07/23/2024 4:26 PM
--- NOTE | 2024-07-23 16:38 | CT Scan Report ---
CT OF THE CHEST WITH IV CONTRAST CLINICAL HISTORY: trauma COMPARISON STUDY: Lung screening CT July 21, 2023. Chest radiograph and right rib series performe d earlier today. TECHNIQUE: Following IV administration of 93 mL of Optiray, helical axial images of the chest were o btained. Sagittal and coronal reconstructions were viewed as well as maximal intensity projections o n an independent 3-D workstation. Automated exposure control was utilized for the study. A dose low ering technique was utilized adhering to the principles of ALARA. FINDINGS: There is no evidence for traumatic injury to the thoracic aorta. There is no pericardial e ffusion. No thoracic lymphadenopathy is present. There is no pneumothorax or pleural effusion. A 4 mm right lower lobe nodule on image 186 of 261 is unchanged from earlier exams. There is no pulmonary c ontusion. Emphysema is again noted. There is no acute thoracic spine fracture. There is an age indete rminate nondisplaced anterior left sixth rib fracture. There is an acute nondisplaced anterior right eighth rib fracture. There are acute fractures of the right fifth, sixth and seventh costal cartilage s. Abdomen and pelvis CT will be reported separately. IMPRESSION: 1. No evidence for traumatic injury to the thoracic aorta. 2. Acute nondisplaced fracture of the anterior right eighth rib. Acute nondisplaced fractures of the right fifth, sixth and seventh costal cartilages. No pneumothorax. 3. Age indeterminate nondisplaced anterior left sixth rib fracture. 4. Emphysema. ACT 112: Negative or not required by law. Electronically signed by: Vinicio Adame M.D. 07/23/2024 4:37 PM
--- NOTE | 2024-07-23 16:56 | CT Scan Report ---
CT OF THE ABDOMEN AND PELVIS WITH CONTRAST CLINICAL HISTORY: trauma COMPARISON STUDY: Right upper quadrant ultrasound December 20, 2015. TECHNIQUE: Following IV administration of 93 mL of Optiray, axial images of the abdomen and pelvis we re obtained from the lung bases to the proximal femurs. Images were reviewed in the axial, sagittal, and coronal planes. IV contrast was administered without complication. Automated exposure control wa s utilized for the study. A dose lowering technique was utilized adhering to the principles of ALARA . FINDINGS: An acute nondisplaced fracture of the anterior right eighth rib as well as several acute no ndisplaced fractures of the right costal cartilages are better depicted on the chest CT. There is hep atic steatosis. No hemoperitoneum or pneumoperitoneum is present. There is no evidence for traumatic injury to the liver, spleen, adrenal glands, kidneys or pancreas. Water attenuation bilateral renal l esions represent cysts. There is no free fluid. No evidence for a bowel obstruction. Colonic divertic ulosis without evidence for acute diverticulitis. The appendix is normal. No acute lumbar spine, pelv is or hip fractures are identified anterolisthesis of L5 on S1 is due to bilateral L5 pars defects. T his is chronic. IMPRESSION: 1. No evidence for acute traumatic injury to the solid abdominal viscera. 2. Acute nondisplaced fracture of the anterior right eighth rib. Several acute nondisplaced fractures of right costal cartilages. These findings are better depicted on the chest CT which will be reporte d separately. ACT 112: Negative or not required by law. Electronically signed by: Vinicio Adame M.D. 07/23/2024 4:53 PM
--- NOTE | 2024-07-23 16:57 | CT Scan Report ---
CT lumbar spine w con CLINICAL HISTORY: trauma COMPARISON STUDY: No previous studies for comparison. TECHNIQUE: Axial images of the lumbar spine were obtained. Sagittal and coronal reconstructions were viewed. Automated exposure control was utilized for the study. A dose lowering technique was utilize d adhering to the principles of ALARA. FINDINGS: There is 9 mm anterolisthesis of L5 on S1 due to bilateral L5 pars defects. Vertebral body heights are maintained. There are no lumbar spine fractures. There are no osseous lesions. Moderate m ultilevel facet arthrosis is present. There is severe disc space narrowing with osteophytosis and vac uum disc phenomenon at L5-S1. Please note that the abdomen and pelvis CT will be reported separately. IMPRESSION: 1. No lumbar spine fractures. 2. 9 mm of anterolisthesis of L5 on S1 due to bilateral L5 pars defects. ACT 112: Negative or not required by law. Electronically signed by: Vinicio Adame M.D. 07/23/2024 4:56 PM
[2024-07-23 17:15] LABS: Basophils # (auto) 0.06 K/uL (0.00-0.20); Basophils % (auto) 0.7 %; Eosinophils # (auto) 0.21 K/uL (0.00-0.50); Eosinophils % (auto) 2.4 %; Hematocrit (blood only) 43.8 % (42.0-52.0); Hemoglobin 14.6 g/dl (14.0-18.0); Immature Granulocytes # (auto) 0.03 K/uL (0.01-0.20); Immature Granulocytes % (auto) 0.3 %; Lymphocytes # (auto) 1.59 K/uL (1.20-3.40); Lymphocytes % (auto) 17.9 %; Mean Corpuscular Hemoglobin 28.9 pg (25.0-34.0); Mean Corpuscular Hgb Conc 33.3 g/dL (32.0-36.0); Mean Corpuscular Volume 86.6 fL (80.0-100.0); Mean Platelet Volume 9.7 fL (9.4-12.4); Monocytes # (auto) 0.53 K/uL (0.11-0.59); Neutrophils # (auto) 6.47 K/uL (1.40-6.50); Neutrophils % (auto) 72.7 %; Platelet Count 346 K/uL (130-400); RDW Coefficient of Variation 12.8 % (11.5-14.5); RDW Standard Deviation 40.2 fL (36.4-46.3); Red Blood Count 5.06 M/uL (4.70-6.10); White Blood Count 8.89 K/ul (4.8-10.8)
[2024-07-23 17:20] LABS: Albumin Globulin Ratio 1.6 (0.9-2); Albumin Level 4.4 gm/dl (3.4-5.0); BUN Creatinine Ratio 19.6 (10-20); Bilirubin,Total 0.7 mg/dl (0.2-1.0); Calcium 10.2 mg/dl (8.6-10.3); Creatinine Clr Calc Pharmacy 75.4 ml/min; Globulin 2.7 gm/dl (2.5-4.0); Potassium 4.4 mmol/L (3.5-5.1); Total Protein 7.1 gm/dl (6.0-8.3)
[2024-07-23 17:26] LABS: Troponin I High Sensitivity 5.5 pg/ml (0-20)
[2024-07-23] MEDS: LIDOCAINE 5% 1 PATCH TD STA (17:28)
[2024-07-23] MEDS: MoRPHine SULFATE 4 MG/ML 1 ML CARP\\VIAL IV STA ×2 (17:30→19:53)
[2024-07-23 17:35] LABS: Prothrombin Time 10.9 Seconds (9.0-12.0)
--- NOTE | 2024-07-23 18:14 | XRay Report ---
XR knee LT 1 or 2V routine CLINICAL HISTORY: trauma, pain COMPARISON: None FINDINGS: Alignment of the left knee is anatomic. There is no acute fracture. There is no joint effu fabiola. Mild left knee osteophytosis is present. There is suspected mild patellofemoral compartment trip nt space narrowing. IMPRESSION: No fractures within the left knee. No left knee joint effusion. ACT 112: Negative or not required by law. Electronically signed by: Vinicio Adame M.D. 07/23/2024 6:13 PM
--- NOTE | 2024-07-23 18:19 | XRay Report ---
XR tibia fibula LT 2V CLINICAL HISTORY: trauma, pain COMPARISON: None FINDINGS: There are no fractures within the left tibia or fibula. There are no osseous lesions. Plea se note that the left knee radiographs will be reported separately. IMPRESSION: No fractures within the left tibia or fibula. ACT 112: Negative or not required by law. Electronically signed by: Vinicio Adame M.D. 07/23/2024 6:18 PM
--- NOTE | 2024-07-23 19:33 | History & Physical Report ---
Date of Service July 23, 2024 Assessment & Plan (1) Fall: Plan: Fall -Patient slipped while trying [employer] plywood while on a ladder. Fell onto his right heel which was outstretched, and then hit his ribs on the ladder as he went down. Did not hit his head or lose consciousness CThead: No intracranial abnormalities CTC-spine: No acute fracture/subluxation CTA/P: No acute intra-abdominal abnormality. No solid organ injury of the abdominal viscera. Acute nondisplaced right eighth rib fracture and costal cartilage fractures. X-ray pelvis: No fracture of the pelvis or hips No lumbar spine fractures For right calcaneal fracture posterior splint with stirrup placed, nonweightbearing on the right lower extremity. Orthopedics consulted. Rib binder ordered for rib fracture, no evidence of flail chest is present. PT/OT consulted, CM consulted. 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 Takes Ozempic on Tuesdays Metformin held while inpatient Basal deferred due to weekly Ozempic use Continue SSI Goal BSG [id number] Last A1c well-controlled 6.8% (5) COPD with emphysema: Plan: COPD Gold class B Continue Stiolto No acute exacerbation, no acute change in management (6) Coronary artery calcification: Plan: Coronary calcification Without myocardial ischemia, with an active lifestyle, no medical CAD Statin continued Patient is not on any antiplatelet agent EKG: Normal sinus rhythm without acute territorial ischemic change Plan DVT prophylaxis: Prophylaxis deferred immediately following trauma, may add pharmacologic prophylaxis 07/24 Diet: Regular Disposition: PCU post trauma alert, may downgrade to MedSur 07/24 if doing well CODE STATUS: Full code History of Present Illness Primary Care Provider: Kiera Pang PA-C Baltazar is a 68-year-old male with a past medical history of type 2 diabetes, COPD, CAD, BPH with LUTS who is not on any antiplatelet agents or anticoagulants who was on a ladder when he lost his balance and slipped. This caused him to fall down he landed with his right leg extended and then fell to the right side. No head strike or loss of consciousness. Patient was evaluated by orthopedics. Patient was stable for discharge however due to nonweightbearing on the right extremity and pain from the rib fracture limited ability to use crutches was not able to ambulate independently and has been recommended for admission and placement. Baltazar is seen at the bedside. 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 He did not hit his head or lose consciousness. He has no headache. No lightheadedness, dizziness. He does have pain in his right ribs where he hit them on the ladder. He has no left-sided chest pain and has no anginal symptoms. He reports he is very active and has had no limiting chest pain although sometimes gets some shortness of breath with his emphysema. Former smoker. Rare social alcohol use. No abdominal pain. He is not able to bear weight on his right leg due to discomfort in splint. Does have some pain on the outer portion of his left lower leg which feels sore. He takes no anticoagulants or antiplatelet agents. Medical History: Reviewed Medications: Reviewed Surgical History: Reviewed Family history: Reviewed Allergies: Reviewed Social History: Former smoker. Rare social ETOH Code Status: Full Allergies Allergy/AdvReac Type Severity Reaction Status Date / Time bee venom protein (honey bee) Allergy Severe Anaphylaxis--WASP Verified 03/04/24 09:07 & YELLOW JACKETS No Known Drug Allergies Allergy Verified 03/04/24 09:07 Home Medications Medication Instructions Recorded Confirmed Type atorvastatin 10 mg tablet 10 mg PO QAM #90 tabs 10/07/22 07/23/24 Rx epinephrine 0.3 mg/0.3 mL 0.3 mg (0.3 mL) IM Q10M PRN 11/04/22 07/23/24 Rx injection, auto-injector (EpiPen) Anaphylaxis #2 ea omeprazole 20 mg capsule,delayed 20 mg PO DAILY #90 caps 05/13/23 07/23/24 Rx release metformin 500 mg tablet,extended 500 mg PO DAILY 09/05/23 07/23/24 History release 24 hr tiotropium 2.5 mcg-olodaterol 2.5 2 puff inhalation DAILY #4 grams 10/02/23 07/23/24 Rx mcg/actuation mist for inhalation (Stiolto Respimat) potassium gluconate 600 mg (99 mg) 600 mg PO DAILY 03/04/24 07/23/24 History tablet semaglutide 0.25 mg or 0.5 mg (2 1 mg subcut Q7D 03/04/24 07/23/24 History mg/3 mL) subcutaneous pen injector (Ozempic) Vitamin D3 1 tab PO DAILY 07/23/24 07/23/24 History tamsulosin 0.4 mg capsule (Flomax) 0.8 mg PO QAM 07/23/24 07/23/24 History Past Med/Surg History Problem List (Updated 07/23/24 @ 19:40 by Ying Araiza DO) Fall (Acute) Calcaneus fracture, right (Acute) Closed rib fracture (Acute) DM type 2 (diabetes mellitus, type 2) (~07/2022) Dyslipidemia COPD with emphysema Bullous emphysema Coronary artery calcification Noted incidentally on CT of chest in 2019 (monitoring of pulm nodules) RHODES (dyspnea on exertion) Impotence, organic Pulmonary nodule Hypersomnia BPH w urinary obs/LUTS Microalbuminuria Medical History Emphysema lung DM type 2 (diabetes mellitus, type 2) (~07/2022) History of COVID-19 Rectal prolapse Internal hemorrhoids Pain, foot, chronic Venous insufficiency of both lower extremities History of tobacco use Dyslipidemia Coronary artery calcification Pericarditis (2016) Degenerative disc disease Cervical spondylosis Chronic viral hepatitis C Peyronie's disease Tinnitus Surgical History History of right cataract surgery H/O umbilical hernia repair (12/26/21) History of tooth extraction History of colonoscopy History of tonsillectomy History of fusion of cervical spine History of arthroscopy of left knee Family History Father Diabetes Heart disease, Onset Age: 56 Cardiac disorder Hypertension Brother Diabetes Hypertension Mother Hypertension Rectal prolapse Other No family history of adverse response to anesthesia Denies family history of Prostate cancer Colorectal cancer Social History Smoking Status: Former smoker Tobacco Type: Cigarettes Age Started Using Tobacco: 17; Age Quit Using Tobacco: 60; packs per day: 1; Second Hand Exposure: No (parents smoked); Do You Dip or Chew Tobacco: No; Hx Alcohol Use: Yes Alcohol type: beer, wine and hard liquor Alcohol Intake Frequency: 2-3 x/Week Hx Substance Use: No Preferred Language: Grenadian Communication Ability: Effective Visual Impairment: Diminished Hearing Ability: Normal 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 NAD. Cooperative. Pleasant, thought process linear and goal- directed HEENT: Atraumatic, normocephalic. Vision and hearing grossly intact. Pupils equal and reactive to light. Pulm: CTAB A&P. -wheezes, -rales, -rhonchi. Symmetrical chest rise. No increased work of breathing. No respiratory distress. Thorax: Tenderness to palpation overlying right anterior eighth rib and at the right parasternal border. No signs of flail chest. Cardiac: RRR, -mrg. Radial pulses intact and symmetrical. Abdominal: Nontender, nondistended, soft. BS present. Extremity: Right lower extremity with splint in place around ankle and foot. Able to wiggle toes without difficulty. Sensation to soft touch intact in toes and bottom of the foot bilaterally. DP pulse intact to palpation bilaterally. Cap refill brisk in the hallux bilaterally. Results & Data Results & Data Vital Signs (Past 12 Hours) Vital Signs Pulse Pulse Resp BP BP Pulse Ox O2 Del Method 07/23/24 17:30 72 19 134/92 93 Room Air 07/23/24 16:00 18 139/94 95 Room Air 07/23/24 14:25 74 18 138/98 95 Room Air 07/23/24 14:19 74 18 138/98 95 Room Air PG Care Time/CCT Total # of Minutes Spent Total Time Spent with Patient: Total time spent is greater than 50% in coordination of care (as documented) at patient's floor/unit and/or counseling patient: Coding Level of Care Code 07188 INT INP/OBS CARE 75MIN Diagnoses Fall W19.XXXA Calcaneus fracture, right S92.001A Closed rib fracture S22.39XA Type 2 diabetes mellitus without complication, without long-term current use of insulin E11.9 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
[2024-07-23] MEDS ORDERED: GLUCOSE 10 TAB/TUBE PO PRN (19:56)
[2024-07-23] MEDS ORDERED: GLUCAGON FOR INJ 1 MG VIAL SQ PRN (19:56)
[2024-07-23] MEDS ORDERED: DEXTROSE 50% 50 ML SYRINGE IV PRN (19:56)
[2024-07-23] MEDS ORDERED: GLUCOSE 40% GEL 15 GM TUBE PO PRN (19:56)
[2024-07-23] MEDS ORDERED: CARBOHYDRATES FOR HYPOGLYCEMIA PO PRN (19:56)
--- NOTE | 2024-07-23 20:17 | Electrocardiogram Report ---
Test Reason : Blood Pressure : */* mmHG Vent. Rate : 70 BPM Atrial Rate : 70 BPM P-R Int : 208 ms QRS Dur : 92 ms QT Int : 364 ms P-R-T Axes : 55 -13 20 degrees QTcB Int : 393 ms Normal sinus rhythm Inferior infarct (cited on or before 13-Aug-2022) Abnormal ECG When compared with ECG of 13-Aug-2022 18:02, No significant change was found Confirmed by Deep Muhammad ([id number]) on 07/23/2024 8:17:02 PM Referred By: Confirmed By: Deep Muhammad
[2024-07-23] MEDS: INSULIN ASPART PER UNIT CHARGE SC SCH (21:10)
[2024-07-23] MEDS: ACETAMINOPHEN 500 MG TAB PO PRN (21:40)
[2024-07-23] MEDS: MoRPHine SULFATE 2 MG/ML CARP IV PRN (23:10)
[2024-07-24] MEDS ORDERED: HYDROmorphone INJ 1 MG/ML SYRINGE IV PRN (00:07)
[2024-07-24] MEDS: KETOROLAC TROMETHAMINE 15 MG/ML VIAL IV ONE (00:19)
[2024-07-24] MEDS: HYDROmorphone INJ 0.5 MG/0.5 ML SYR IV PRN ×2 (00:20→13:30)
[2024-07-24] MEDS: ACETAMINOPHEN 500 MG TAB PO SCH (05:49)
[2024-07-24 07:52] LABS: Basophils # (auto) 0.05 K/uL (0.00-0.20); Basophils % (auto) 0.6 %; Eosinophils # (auto) 0.26 K/uL (0.00-0.50); Hemoglobin 13.7 g/dl (14.0-18.0); Immature Granulocytes # (auto) 0.02 K/uL (0.01-0.20); Immature Granulocytes % (auto) 0.2 %; Lymphocytes # (auto) 1.92 K/uL (1.20-3.40); Lymphocytes % (auto) 22.3 %; Mean Corpuscular Hemoglobin 29.8 pg (25.0-34.0); Mean Corpuscular Hgb Conc 35.1 g/dL (32.0-36.0); Monocytes # (auto) 0.78 K/uL (0.11-0.59); Monocytes % (auto) 9.1 %; Neutrophils # (auto) 5.58 K/uL (1.40-6.50); Neutrophils % (auto) 64.8 %; Platelet Count 300 K/uL (130-400); RDW Coefficient of Variation 12.8 % (11.5-14.5); RDW Standard Deviation 39.1 fL (36.4-46.3); Red Blood Count 4.59 M/uL (4.70-6.10); White Blood Count 8.61 K/ul (4.8-10.8)
[2024-07-24 08:07] LABS: BUN Creatinine Ratio 16.7 (10-20); Calcium 9.2 mg/dl (8.6-10.3); Creatinine Clr Calc Pharmacy 76.6 ml/min
[2024-07-24] MEDS: ATORVASTATIN 10 MG TAB PO SCH (08:38)
[2024-07-24] MEDS: TAMSULOSIN HCL 0.4 MG CAP PO SCH (08:38)
[2024-07-24] MEDS: PANTOprazole 40 MG TAB PO SCH (08:38)
[2024-07-24] MEDS: UMECLIDINIUM/VILANTEROL 62.5/25MCG 7 PUFFS/INHALER INH SCH (08:39)
--- NOTE | 2024-07-24 10:38 | Orthopedic Consultation ---
<Statement entered by Ferddie Rodriguez MD - 07/24/24 12:54> ` Patient seen and evaluated. Complains of right sided rib pain and right heel pain. He is able to do a leg lift and bend his knee without difficulty. The right leg is in a well-padded splint. He can wiggle his toes has intact sensation in the lesser toes although he notes chronic numbness due to neuropathy in the left big toe. DP pulses 1+ capillary refill less than [address] scan is pending. X-rays of the right ankle show a displaced calcaneal fracture. Recommend nonweightbearing elevation icing. Surgery likely indicated. Probably not done on an acute basis. We could set him up with Dr. Ray or one of the foot and ankle specialist at [place]. He may seek care through the [facility]. We will follow-up regarding this. He will eventually need DVT prophylaxis if not already given. Date of Consultation July 24, 2024 Assessment & Plan (1) Calcaneus fracture, right: Patient has a right calcaneus fracture. Suspect some comminution. Will obtain a CT scan of the right calcaneus to further evaluate fracture pattern in preparation for surgical intervention. This could potentially be treated with closed care versus open duction internal fixation. Recommended referral to a foot and ankle specialist. He would like this to be done through the [facility]. He states he is waiting to hear from them. He will notify them of this to set him up with a foot and ankle specialist of their choice. We can also assist with referring him to possibly Dr. Ray from [facility] or down to [place] for a foot and ankle specialist there. In the meantime he needs to be nonweightbearing on the right leg at all times. He can use crutches or walker or even a wheelchair. Encourage strict elevation of the right lower extremity. Elevate above his heart at all times on 3-4 pillows. Keep the splint on at all times. Keep it clean and dry. Allowed for knee hip and toe range of motion as tolerated. Ice to right ankle as needed for pain or swelling. No surgical intervention is planned for right now. He may have a regular diet. Will follow-up with him in a day or so during his inpatient stay to determine referral decisions. Typically surgical intervention may not be performed for 7 to 21 days after calcaneus fracture due to significant swelling. Pain medication as ordered. History of Present Illness Reason for Consultation: Right calcaneal fracture Attending Physician: Freddie Del Valle MD History of Present Illness Patient is a pleasant 68-year-old male who was brought to the emergency room after falling off a ladder. He states that was about 8 steps high and he was at the very top of the ladder. He was trying to put a 2 x 4 on top of the roof and it slipped and he and the ladder toppled over. He had immediate pain on the right side of his ribs as well as his right heel. He was unable to bear weight. He was brought to the emergency room. X-rays were taken he was found to have a right calcaneus fracture. He was admitted by the medical service also for multiple rib fractures. He states today that he only things that bother him or his ribs and his heel. He has been placed in a splint. He is elevated on a couple of pillows. Has been out of bed but has been using crutches and not putting any weight on the right foot. He denies any numbness or tingling. Denies any previous problems with the right foot or ankle. He states that [facility] Allergies Allergy/AdvReac Type Severity Reaction Status Date / Time bee venom protein (honey bee) Allergy Severe Anaphylaxis--WASP Verified 03/04/24 09:07 & YELLOW JACKETS No Known Drug Allergies Allergy Verified 03/04/24 09:07 Home Medications Medication Instructions Recorded Confirmed Type atorvastatin 10 mg tablet 10 mg PO QAM #90 tabs 10/07/22 07/23/24 Rx epinephrine 0.3 mg/0.3 mL 0.3 mg (0.3 mL) IM Q10M PRN 11/04/22 07/23/24 Rx injection, auto-injector (EpiPen) Anaphylaxis #2 ea omeprazole 20 mg capsule,delayed 20 mg PO DAILY #90 caps 05/13/23 07/23/24 Rx release metformin 500 mg tablet,extended 500 mg PO DAILY 09/05/23 07/23/24 History release 24 hr tiotropium 2.5 mcg-olodaterol 2.5 2 puff inhalation DAILY #4 grams 10/02/23 07/23/24 Rx mcg/actuation mist for inhalation (Stiolto Respimat) potassium gluconate 600 mg (99 mg) 600 mg PO DAILY 03/04/24 07/23/24 History tablet semaglutide 0.25 mg or 0.5 mg (2 1 mg subcut Q7D 03/04/24 07/23/24 History mg/3 mL) subcutaneous pen injector (Ozempic) Vitamin D3 1 tab PO DAILY 07/23/24 07/23/24 History tamsulosin 0.4 mg capsule (Flomax) 0.8 mg PO QAM 07/23/24 07/23/24 History Patient History Medical History Emphysema lung History of COVID-19 08/2021 headache, fever, cough, sob; c/o ongoing "mild lung congestion" NO HOSPITAL Rectal prolapse Internal hemorrhoids Pain, foot, chronic Venous insufficiency of both lower extremities History of tobacco use Quit 2015 Pericarditis (2015) H/o - follows with Dr. Brown Degenerative disc disease Cervical spondylosis Chronic viral hepatitis C Treated and in remission Peyronie's disease Tinnitus Bilateral Surgical History History of right cataract surgery H/O umbilical hernia repair (12/26/21) Open Umbilical Hernia Repair - Maldonado Jacobson DO, FACS 12/26/2021 History of tooth extraction all teeth History of colonoscopy History of tonsillectomy History of fusion of cervical spine normal ROM History of arthroscopy of left knee X3 Family History Father Diabetes Heart disease, Onset Age: 56 Heart attack Cardiac disorder Hypertension Brother Diabetes Hypertension Mother Hypertension Rectal prolapse Other No family history of adverse response to anesthesia Denies family history of Prostate cancer Colorectal cancer Social History Smoking Status: Former smoker Tobacco Type: Cigarettes Age Started Using Tobacco: 17; Age Quit Using Tobacco: 60; packs per day: 1; Second Hand Exposure: No (parents smoked); Do You Dip or Chew Tobacco: No; Hx Alcohol Use: Yes Alcohol type: beer, wine and hard liquor Alcohol Intake Frequency: 2-3 x/Week Hx Substance Use: Yes Preferred Language: Frisian Communication Ability: Effective Visual Impairment: Diminished Hearing Ability: Normal Mailroom Assistant Required: No Beliefs That Will Affect Care: None marital status: Current Living Situation: Other Current Living Situation Comment: 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 The splint is adequate. His toes move freely. Capillary fill is brisk. He has diminished sensation which is chronic for him in the right great toe but normal sensation throughout the 2nd through 5th toes. Dorsalis pedis pulses 1+. Mild edema into the dorsum of the foot. He is able to independently straight leg raise his right leg without discomfort. He has no joint effusion to the right knee. Full range of motion of the knee. Normal sensation throughout the right upper thigh. Tolerates right hip range of motion without discomfort. Skin: Splint was not removed to look at the skin around the calcaneus but visible skin is healthy and intact. Results & Data Vital Signs (Past 12 Hours) Vital Signs Temp Pulse Pulse Resp BP Pulse Ox O2 Del Method 07/24/24 07:37 69 07/24/24 07:22 36.6 C 69 19 132/72 91 Room Air 07/24/24 03:09 36.7 C 64 18 121/73 92 Room Air 07/23/24 23:03 81 07/23/24 22:43 36.5 C 75 18 145/88 H 93 Room Air Laboratory Results 07/24/24 07/24/24 07/24/24 Range/Units 11:19 07:27 07:24 WBC 8.61 (4.8-10.8) K/ul RBC 4.59 L (4.70-6.10) M/uL Hgb 13.7 L (14.0-18.0) g/dl POC Hgb (14.0-18.0) g/dl Hct 39.0 L (42.0-52.0) % POC Hct (42-52) % MCV 85.0 (80.0-100.0) fL MCH 29.8 (25.0-34.0) pg MCHC 35.1 (32.0-36.0) g/dL RDW Std Deviation 39.1 (36.4-46.3) fL RDW Coeff of Marlena 12.8 (11.5-14.5) % Plt Count 300 (130-400) K/uL MPV 9.0 L (9.4-12.4) fL Immature Gran % (Auto) 0.2 % Neut % (Auto) 64.8 % Lymph % (Auto) 22.3 % [place] % (Auto) 9.1 % Eos % (Auto) 3.0 % Baso % (Auto) 0.6 % Neut # (Auto) 5.58 (1.40-6.50) K/uL Lymph # (Auto) 1.92 (1.20-3.40) K/uL [place] # (Auto) 0.78 H (0.11-0.59) K/uL Eos # (Auto) 0.26 (0.00-0.50) K/uL Baso # (Auto) 0.05 (0.00-0.20) K/uL Immature Gran # (Auto) 0.02 (0.01-0.20) K/uL PT (9.0-12.0) Seconds INR (0.9-1.1) POC Sodium (135-144) mmol/L Sodium 136 (136-145) mmol/L POC Potassium (3.3-5.0) mmol/L Potassium 4.0 (3.5-5.1) mmol/L POC Chloride (101-112) mmol/L Chloride 102 (98-107) mmol/L Carbon Dioxide 30 (21-32) mmol/L POC Total CO2 (24-31) mmol/L Anion Gap 4 (3-11) POC Anion Gap (16-25) mmol/L POC BUN (7-18) mg/dl BUN 18 (6-23) mg/dl Creatinine 1.08 (0.6-1.4) mg/dl POC Creatinine (0.6-1.3) mg/dl Est Cr Clr Drug Dosing 76.6 ml/min eGFR 75.68 BUN/Creatinine Ratio 16.7 (10-20) Glucose 91 (70-99(Fasting)) mg/dl POC Glucose 98 94 (70-99) mg/dl POC Glucose (other) (70-99) mg/dl Calcium 9.2 (8.6-10.3) mg/dl POC Ioniz Calcium Kristina (1.12-1.32) mmol/l Total Bilirubin (0.2-1.0) mg/dl AST (13-39) U/L ALT (7-52) U/L Alkaline Phosphatase (34-104) U/L Troponin I High Sens (0-20) pg/ml Total Protein (6.0-8.3) gm/dl Albumin (3.4-5.0) gm/dl Globulin (2.5-4.0) gm/dl Albumin/Globulin Ratio (0.9-2) 07/23/24 07/23/24 07/23/24 Range/Units 21:08 14:43 14:35 WBC 8.89 (4.8-10.8) K/ul RBC 5.06 (4.70-6.10) M/uL Hgb 14.6 (14.0-18.0) g/dl POC Hgb 14.3 (14.0-18.0) g/dl Hct 43.8 (42.0-52.0) % POC Hct 42 (42-52) % MCV 86.6 (80.0-100.0) fL MCH 28.9 (25.0-34.0) pg MCHC 33.3 (32.0-36.0) g/dL RDW Std Deviation 40.2 (36.4-46.3) fL RDW Coeff of Marlena 12.8 (11.5-14.5) % Plt Count 346 (130-400) K/uL MPV 9.7 (9.4-12.4) fL Immature Gran % (Auto) 0.3 % Neut % (Auto) 72.7 % Lymph % (Auto) 17.9 % [place] % (Auto) 6.0 % Eos % (Auto) 2.4 % Baso % (Auto) 0.7 % Neut # (Auto) 6.47 (1.40-6.50) K/uL Lymph # (Auto) 1.59 (1.20-3.40) K/uL [place] # (Auto) 0.53 (0.11-0.59) K/uL Eos # (Auto) 0.21 (0.00-0.50) K/uL Baso # (Auto) 0.06 (0.00-0.20) K/uL Immature Gran # (Auto) 0.03 (0.01-0.20) K/uL PT 10.9 (9.0-12.0) Seconds INR 1.0 (0.9-1.1) POC Sodium 141 (135-144) mmol/L Sodium 140 (136-145) mmol/L POC Potassium 4.4 (3.3-5.0) mmol/L Potassium 4.4 (3.5-5.1) mmol/L POC Chloride 105 (101-112) mmol/L Chloride 107 (98-107) mmol/L Carbon Dioxide 26 (21-32) mmol/L POC Total CO2 24 (24-31) mmol/L Anion Gap 7 (3-11) POC Anion Gap 18.0 (16-25) mmol/L POC BUN 23 H (7-18) mg/dl BUN 22 (6-23) mg/dl Creatinine 1.12 (0.6-1.4) mg/dl POC Creatinine 1.3 (0.6-1.3) mg/dl Est Cr Clr Drug Dosing 75.4 ml/min eGFR 72.45 BUN/Creatinine Ratio 19.6 (10-20) Glucose 129 H (70-99(Fasting)) mg/dl POC Glucose 76 (70-99) mg/dl POC Glucose (other) 135 H (70-99) mg/dl Calcium 10.2 (8.6-10.3) mg/dl POC Ioniz Calcium Kristina 1.27 (1.12-1.32) mmol/l Total Bilirubin 0.7 (0.2-1.0) mg/dl AST 20 (13-39) U/L ALT 24 (7-52) U/L Alkaline Phosphatase 50 (34-104) U/L Troponin I High Sens 5.5 (0-20) pg/ml Total Protein 7.1 (6.0-8.3) gm/dl Albumin 4.4 (3.4-5.0) gm/dl Globulin 2.7 (2.5-4.0) gm/dl Albumin/Globulin Ratio 1.6 (0.9-2) Diagnostic Findings Ankle X-Ray 07/23/24 14:26 XR ankle RT min 3V routine CLINICAL HISTORY: trauma TECHNIQUE: 3 views of the right ankle were obtained. Comparison: None available at the time of this dictation. FINDINGS: There is a fracture of the calcaneus possibly involving the posterior talocalcaneal joint. The joint spaces are well preserved. Soft tissue swelling is seen about the ankle. IMPRESSION: Fracture of the calcaneus with associated soft tissue swelling. The malleoli appear intact. ACT 112: Negative or not required by law. Electronically signed by: Orlando Mcleod M.D. 07/23/2024 3:19 PM Pelvis X-Ray 07/23/24 14:26 XR pelvis 1-2V routine CLINICAL HISTORY: trauma COMPARISON: None FINDINGS: Sacroiliac joints and symphysis pubis are intact. There are no fractures within the pelvis or hips. There are no osseous lesions. Hip joint spaces are preserved. There is a moderate amount of stool within the rectum. IMPRESSION: No fractures within the pelvis or hips. ACT 112: Negative or not required by law. Electronically signed by: Vinicio Adame M.D. 07/23/2024 3:15 PM Ribs w/Chest X-Ray 07/23/24 14:26 AP CHEST WITH RIGHT-SIDED RIB SERIES CLINICAL HISTORY: Trauma. FINDINGS: An AP chest radiograph with 6 additional views from a right-sided rib series is compared to study dated 05/06/2022 and correlated with chest CT dated 07/21/2023. The AP view is significantly degraded by apical lordotic positioning. The heart is enlarged. The pulmonary vasculature is noncongested. Emphysema and chronic interstitial thickening is similar to previous. There is mild bibasilar scarring/atelectasis. No airspace consolidation or pleural effusion is identified. No pneumothorax is seen. The skeletal structures are osteopenic. There is acute appearing fracture of the right anterior 8th rib. No additional findings are suspicious for acute/displaced right-sided rib fracture on rib series. There is a chronic/healed fracture of the right anterior 9th rib. The remainder of the bony thorax is grossly intact. Fusion hardware is seen in the lower cervical spine. IMPRESSION: 1. Cardiomegaly and emphysema with no acute cardiopulmonary abnormality identified. 2. Acute appearing fracture of the right anterior 8th rib. Correlate for point tenderness. ACT 112: Negative or not required by law. Electronically signed by: Deacon Stubbs M.D. 07/23/2024 3:23 PM Abdomen/Pelvis CT 07/23/24 15:06 CT OF THE ABDOMEN AND PELVIS WITH CONTRAST CLINICAL HISTORY: trauma COMPARISON STUDY: Right upper quadrant ultrasound December 20, 2015. TECHNIQUE: Following IV administration of 93 mL of Optiray, axial images of the abdomen and pelvis were obtained from the lung bases to the proximal femurs. Images were reviewed in the axial, sagittal, and coronal planes. IV contrast was administered without complication. Automated exposure control was utilized for the study. A dose lowering technique was utilized adhering to the principles of ALARA. FINDINGS: An acute nondisplaced fracture of the anterior right eighth rib as well as several acute nondisplaced fractures of the right costal cartilages are better depicted on the chest CT. There is hepatic steatosis. No hemoperitoneum or pneumoperitoneum is present. There is no evidence for traumatic injury to the liver, spleen, adrenal glands, kidneys or pancreas. Water attenuation bilateral renal lesions represent cysts. There is no free fluid. No evidence for a bowel obstruction. Colonic diverticulosis without evidence for acute diverticulitis. The appendix is normal. No acute lumbar spine, pelvis or hip fractures are identified anterolisthesis of L5 on S1 is due to bilateral L5 pars defects. This is chronic. IMPRESSION: 1. No evidence for acute traumatic injury to the solid abdominal viscera. 2. Acute nondisplaced fracture of the anterior right eighth rib. Several acute nondisplaced fractures of right costal cartilages. These findings are better depicted on the chest CT which will be reported separately. ACT 112: Negative or not required by law. Electronically signed by: Vinicio Adame M.D. 07/23/2024 4:[address] 07/23/24 15:06 CT SCAN OF THE CERVICAL SPINE CLINICAL HISTORY: Trauma. COMPARISON STUDY: CT of the cervical spine dated 05/23/2024. TECHNIQUE: CT scan of the cervical spine is performed from the skull base to the upper thoracic spine. Images are reviewed in the axial, sagittal, and coronal planes. IV contrast was not administered for this examination. A dose lowering technique was utilized adhering to the principles of ALARA. FINDINGS: Skeletal structures: The skeletal structures are osteopenic. There is no evidence of fracture or subluxation involving the cervical spine. Vertebral body height and alignment are maintained. There is straightening of the cervical lordosis. Postsurgical change from anterior fusion is seen at C5-C6 with near complete bony incorporation at this level. The odontoid process and lateral masses are intact. The atlantoaxial articulation is preserved no destructive degenerative change. The spinous processes appear intact. Intervertebral discs: There is moderate moderate disc space narrowing at C6-C7. Mild narrowing seen at the remaining cervical levels. Central canal: Posterior disc osteophyte complexes at C5-C6 and C6-C7 may contribute to mild acquired compromise of the central canal. Soft tissues: The prevertebral and paraspinous soft tissues are within normal limits. There are calcified sialoliths noted in the parotid glands. Calvarium: The visualized calvarium at the skull base appears intact. Brain parenchyma: Partially visualized brain parenchyma at the skull base is within normal limits. Sinuses and mastoids: There is trace mucosal thickening within the maxillary antra. There is a trace right mastoid effusion. The left mastoid air cells are well pneumatized. Lung apices: Emphysematous change is noted at the apices. IMPRESSION: 1. There is no evidence of cervical spine fracture or subluxation. 2. Osteopenia with postsurgical and spondylotic change as above. 3. Emphysema ACT 112: Negative or not required by law. Electronically signed by: Deacon Stubbs M.D. 07/23/2024 4:[address] 07/23/24 15:06 CT OF THE CHEST WITH IV CONTRAST CLINICAL HISTORY: trauma COMPARISON STUDY: Lung screening CT July 21, 2023. Chest radiograph and right rib series performed earlier today. TECHNIQUE: Following IV administration of 93 mL of Optiray, helical axial images of the chest were obtained. Sagittal and coronal reconstructions were viewed as well as maximal intensity projections on an independent 3-D workstation. Automated exposure control was utilized for the study. A dose lowering technique was utilized adhering to the principles of ALARA. FINDINGS: There is no evidence for traumatic injury to the thoracic aorta. There is no pericardial effusion. No thoracic lymphadenopathy is present. There is no pneumothorax or pleural effusion. A 4 mm right lower lobe nodule on image 186 of 261 is unchanged from earlier exams. There is no pulmonary contusion. Emphysema is again noted. There is no acute thoracic spine fracture. There is an age indeterminate nondisplaced anterior left sixth rib fracture. There is an acute nondisplaced anterior right eighth rib fracture. There are acute fractures of the right fifth, sixth and seventh costal cartilages. Abdomen and pelvis CT will be reported separately. IMPRESSION: 1. No evidence for traumatic injury to the thoracic aorta. 2. Acute nondisplaced fracture of the anterior right eighth rib. Acute nondisplaced fractures of the right fifth, sixth and seventh costal cartilages. No pneumothorax. 3. Age indeterminate nondisplaced anterior left sixth rib fracture. 4. Emphysema. ACT 112: Negative or not required by law. Electronically signed by: Vinicio Adame M.D. 07/23/2024 4:[address] 07/23/24 15:06 CT OF THE HEAD WITHOUT CONTRAST CLINICAL HISTORY: trauma COMPARISON STUDY: Head CT May 23, 2024. CT DOSE: 3599.23 mGy.cm TECHNIQUE: Helical axial images of the head were obtained without IV contrast. Automated exposure control was utilized for the study. A dose lowering technique was utilized adhering to the principles of ALARA. FINDINGS: No acute intracranial hemorrhage, midline shift or mass effect is present. Slight prominence of the extra-axial spaces is unchanged since prior head CT. A hypodense focus within the right basal ganglia is unchanged. This favors an old infarct. The ventricular system is unremarkable. The basal cisterns are patent. No extra-axial collections are present. There are no findings to suggest acute dural sinus thrombosis or acute territorial infarct. No significant calvarial abnormalities are present. Visualized portions of the sinuses and mastoid air cells are clear. IMPRESSION: 1. No acute intracranial findings. No change in appearance of the brain. 2. No calvarial fractures. ACT 112: Negative or not required by law. Electronically signed by: Vinicio Adame M.D. 07/23/2024 4:[address] 07/23/24 15:06 CT lumbar spine w con CLINICAL HISTORY: trauma COMPARISON STUDY: No previous studies for comparison. TECHNIQUE: Axial images of the lumbar spine were obtained. Sagittal and coronal reconstructions were viewed. Automated exposure control was utilized for the study. A dose lowering technique was utilized adhering to the principles of ALARA. FINDINGS: There is 9 mm anterolisthesis of L5 on S1 due to bilateral L5 pars defects. Vertebral body heights are maintained. There are no lumbar spine fractures. There are no osseous lesions. Moderate multilevel facet arthrosis is present. There is severe disc space narrowing with osteophytosis and vacuum disc phenomenon at L5-S1. Please note that the abdomen and pelvis CT will be reported separately. IMPRESSION: 1. No lumbar spine fractures. 2. 9 mm of anterolisthesis of L5 on S1 due to bilateral L5 pars defects. ACT 112: Negative or not required by law. Electronically signed by: Vinicio Adame M.D. 07/23/2024 4:56 PM Knee X-Ray 07/23/24 17:20 XR knee LT 1 or 2V routine CLINICAL HISTORY: trauma, pain COMPARISON: None FINDINGS: Alignment of the left knee is anatomic. There is no acute fracture. There is no joint effusion. Mild left knee osteophytosis is present. There is suspected mild patellofemoral compartment joint space narrowing. IMPRESSION: No fractures within the left knee. No left knee joint effusion. ACT 112: Negative or not required by law. Electronically signed by: Vinicio Adame M.D. 07/23/2024 6:13 PM Tibia/Fibula X-Ray 07/23/24 17:20 XR tibia fibula LT 2V CLINICAL HISTORY: trauma, pain COMPARISON: None FINDINGS: There are no fractures within the left tibia or fibula. There are no osseous lesions. Please note that the left knee radiographs will be reported separately. IMPRESSION: No fractures within the left tibia or fibula. ACT 112: Negative or not required by law. Electronically signed by: Vinicio Adame M.D. 07/23/2024 6:18 PM (1) Calcaneus fracture, right Encounter type: initial encounter Calcaneus location: body Fracture type: closed
[2024-07-24] MEDS: POTASSIUM CHLORIDE CRTAB 20 MEQ TABCR PO SCH (10:40)
--- NOTE | 2024-07-24 11:12 | Hospitalist Progress Note ---
Date of Service July 24, 2024 Assessment & Plan (1) Fall: Plan: Fall, right calcaneal fracture/closed right eighth rib fracture -Patient slipped while trying to hoist plywood while on a ladder. Fell onto his right heel which was outstretched, and then hit his ribs on the ladder as he went down. Did not hit his head or lose consciousness CThead: No intracranial abnormalities CTC-spine: No acute fracture/subluxation CTA/P: No acute intra-abdominal abnormality. No solid organ injury of the abdominal viscera. Acute nondisplaced right eighth rib fracture and costal cartilage fractures. X-ray pelvis: No fracture of the pelvis or hips No lumbar spine fractures For right calcaneal fracture posterior splint with stirrup placed, nonweightbearing on the right lower extremity. Orthopedics consulted. PT/OT consulted, CM consulted. Due to nonweightbearing status of the right leg, some discomfort in his left leg, and difficulty using the crutches due to pain in his rib is not able to ambulate at baseline and will need at least short-term rehab Multimodal pain control, Tylenol, scaled hydromoprhine for breakthrough pain, continue lidocaine patch. [facility] was called to update on patient admission status. They are aware that he is pending placement and currently hemodynamically stable. 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 Continue Stiolto No acute exacerbation, no acute change in management (6) Coronary artery calcification: Plan: Coronary calcification Without myocardial ischemia, with an active lifestyle, no medical CAD Statin continued Patient is not on any antiplatelet agent EKG: Normal sinus rhythm without acute territorial ischemic change Plan DVT prophylaxis: Prophylaxis deferred immediately following trauma, may add pharmacologic prophylaxis 07/24 Diet: Regular Disposition: PCU post trauma alert, may downgrade to [facility] 07/24 if doing well CODE STATUS: Full code Admission and Anticipated Discharge Date Admission Date: July 23, 2024 Subjective Doing well at the bedside. Had increased pain overnight was switched to hydromorphone for breakthrough pain by overnight resident, he reports that this does help control his pain for around 3 to 4 hours. Pain does not seem worse today. Still has limited ambulation due to discomfort while using crutches and nonweightbearing of his right leg. Placement pending, CM following. [facility], they may wish to have him transferred to their facility while pending placement versus patient remaining until placement is available Physical Exam Physical Exam: General: A&Ox3. NAD. Cooperative. HEENT: Atraumatic, normocephalic. Vision and hearing grossly intact. Pupils equal and reactive to light. Pulm: CTAB A&P. -wheezes, -rales, -rhonchi. Symmetrical chest rise. No increased work of breathing. No respiratory distress. Thorax: Remains with tenderness to palpation overlying right anterior eighth rib and at the right parasternal border. No signs of flail chest. Cardiac: RRR, -mrg. Radial pulses intact and symmetrical. Extremity: Right lower extremity with splint in place around ankle and foot. Able to wiggle toes without difficulty. No signs of vascular compromise Results & Data Results & Data Vital Signs (Past 12 Hours) Vital Signs Temp Pulse Pulse Resp BP Pulse Ox O2 Del Method 07/24/24 07:37 69 07/24/24 07:22 36.6 C 69 19 132/72 91 Room Air 07/24/24 03:09 36.7 C 64 18 121/73 92 Room Air PG Care Time/CCT Total # of Minutes Spent Total Time Spent with Patient: Total time spent is greater than 50% in coordination of care (as documented) at patient's floor/unit and/or counseling patient: Coding Level of Care Code 29436 SUB INP/OBS CARE 2/35MIN Diagnoses Fall W19.XXXA Calcaneus fracture, right S92.001A Closed rib fracture S22.39XA Type 2 diabetes mellitus without complication, without long-term current use of insulin E11.9 Diabetes mellitus termite exterminator insulin use: without termite exterminator use Diabetes mellitus complication status: without complication COPD with emphysema J43.9 Coronary artery calcification I25.10; I25.84 (4) DM type 2 (diabetes mellitus, type 2) Diabetes mellitus correction insulin use: without termite exterminator use Diabetes mellitus complication status: without complication Qualified Code(s): E11.9 - Type 2 diabetes mellitus without complications
--- NOTE | 2024-07-24 12:05 | CT Scan Report ---
CT SCAN OF THE RIGHT ANKLE WITHOUT IV CONTRAST CLINICAL HISTORY: Calcaneal fracture. COMPARISON STUDY: Radiographs of the right ankle dated 07/23/2024. TECHNIQUE: CT scan of the right ankle is performed from the distal tibia and fibula to the base of th e foot. Images are reviewed in the axial, sagittal, and coronal planes. IV contrast was not administe red for this examination. 3-D reformats are created and assessed. A dose lowering technique was utili zed adhering to the principles of ALARA. CT DOSE: 444.81 mGy.cm FINDINGS: The skeletal structures are well-mineralized. No fracture is seen at the ankle joint. The a nkle mortise is intact. No osteochondral defect is suggested in the talar dome. There is a tiny avuls ion fracture seen along the inferior/medial aspect of the talus on axial image #117. There is a commi nuted fracture of the calcaneus with numerous displaced fragments. A component of the fracture extend s through the base of the anterior process. Fracture involves the superior and inferior cortex, as we ll as the medial and lateral cortex. There is only mild loss of height of the calcaneus. There is off set of the basal fragments by approximately 9 mm. Fracture involve the sustentaculum yoli at several sites. There is offset of the articular surface dorsally with the anterior fragments depressed by valente roximately 3 mm. Additional fragments are seen posterior to the talus. Hemorrhage is seen around the calcaneal fractures. There is a tiny avulsion fracture at the dorsal/lateral base of the cuboid, seen on sagittal image #36. There is no offset at the second tarsometatarsal joint or widening between th e base of the first and second metatarsals to suggest Lisfranc type injury. Diffuse soft tissue edema is present around the ankle and hindfoot. The Achilles tendon is intact as visualized by CT. IMPRESSION: 1. Complex comminuted calcaneal fracture as detailed above with large displaced fragments, mild loss of height, and surrounding hemorrhage. 2. There are also tiny avulsion fractures off the talus and cuboid. 3. No fracture is seen at the ankle joint. ACT 112: Negative or not required by law. Dictated: 07/24/2024 11:18 AM Transcribed: 07/24/2024 11:35 AM Toribio [id number] [facility] Electronically signed by: Deacon Stubbs M.D. 07/24/2024 12:03 PM
[2024-07-24] MEDS: POLYETHYLENE (MIRALAX) 17 GM PACK PO PRN (12:50)
[2024-07-24] MEDS: oxyCODONE HCL 10 MG TABCR (OxyCONTIN) PO PRN (12:50)
[2024-07-24] MEDS: CHOLECALCIFEROL 10 MCG (400 UNITS) TAB PO SCH (12:50)
[2024-07-24] MEDS ORDERED: ENOXAPARIN INJ 40 MG/0.4 ML SYR SQ SCH (13:00)
[2024-07-24] MEDS: CALCIUM CARBONATE 500 MG CHEWABLE TAB PO PRN (22:38)
[2024-07-25 06:55] LABS: Basophils # (auto) 0.05 K/uL (0.00-0.20); Basophils % (auto) 0.5 %; Eosinophils % (auto) 1.9 %; Hematocrit (blood only) 43.2 % (42.0-52.0); Hemoglobin 14.7 g/dl (14.0-18.0); Immature Granulocytes # (auto) 0.03 K/uL (0.01-0.20); Immature Granulocytes % (auto) 0.3 %; Lymphocytes # (auto) 1.57 K/uL (1.20-3.40); Lymphocytes % (auto) 15.2 %; Mean Corpuscular Hemoglobin 29.2 pg (25.0-34.0); Mean Corpuscular Volume 85.7 fL (80.0-100.0); Mean Platelet Volume 9.1 fL (9.4-12.4); Monocytes # (auto) 0.78 K/uL (0.11-0.59); Monocytes % (auto) 7.5 %; Neutrophils # (auto) 7.73 K/uL (1.40-6.50); Neutrophils % (auto) 74.6 %; Platelet Count 315 K/uL (130-400); RDW Coefficient of Variation 12.7 % (11.5-14.5); RDW Standard Deviation 39.7 fL (36.4-46.3); Red Blood Count 5.04 M/uL (4.70-6.10); White Blood Count 10.36 K/ul (4.8-10.8)
[2024-07-25 07:17] LABS: BUN Creatinine Ratio 15.5 (10-20); Calcium 9.5 mg/dl (8.6-10.3); Creatinine Clr Calc Pharmacy 85.6 ml/min; Potassium 3.9 mmol/L (3.5-5.1)
[2024-07-25] MEDS ORDERED: VITAMIN D3 PO SCH (09:00)
--- NOTE | 2024-07-25 09:47 | Orthopedic Progress Note ---
Date of Service July 25, 2024 Assessment & Plan (1) Calcaneus fracture, right: Plan: Findings discussed with patient. I would recommend that he consult with a foot and ankle specialist about ORIF. We could arrange here with Dr. Ray if he desires. The other options would be through the [place] or at [place]. For now he will elevate ice and remain nonweightbearing. Some general parameters of surgical treatment are discussed. [facility] He is on Lovenox for DVT prophylaxis. Admission and Anticipated Discharge Date Admission Date: July 23, 2024 Orthopedic Progress Note Comfortable. Feels swelling is less. Pain manageable. The foot is elevated. Capillary refills less than 2 seconds. He can wiggle his toes. CT scan is reviewed which reveals a displaced calcaneal fracture with varus alignment of the heel and impaction of the posterior facet. There is a nondisplaced fracture through the facet otherwise it is mainly in 1 large fragment. H&H stable today (1) Calcaneus fracture, right Calcaneus location: body Encounter type: initial encounter Fracture type: closed
[2024-07-25] MEDS: ENOXAPARIN INJ 40 MG/0.4 ML SYR SQ SCH (09:57)
[2024-07-25] MEDS: metFORMIN HCL ER 500 MG TABCR PO SCH (12:13)
--- NOTE | 2024-07-25 12:30 | Hospitalist Progress Note ---
Date of Service July 25, 2024 Assessment & Plan (1) Fall: Plan: Fall, right calcaneal fracture/closed right eighth rib fracture -Patient slipped while trying to hoist plywood while on a ladder. Fell onto his right heel which was outstretched, and then hit his ribs on the ladder as he went down. Did not hit his head or lose consciousness CThead: No intracranial abnormalities CTC-spine: No acute fracture/subluxation CTA/P: No acute intra-abdominal abnormality. No solid organ injury of the abdominal viscera. Acute nondisplaced right eighth rib fracture and costal cartilage fractures. X-ray pelvis: No fracture of the pelvis or hips No lumbar spine fractures For right calcaneal fracture posterior splint with stirrup placed, nonweightbearing on the right lower extremity. Orthopedics consulted. Patient will need eventual surgical intervention however this can be formed as an outpatient once his swelling improves. Appreciate recommendations. DVT prophylaxis is continued PT/OT consulted, CM consulted. Due to nonweightbearing status of the right leg, some discomfort in his left leg, and difficulty using the crutches due to pain in his rib is not able to ambulate and will need at least short-term rehab Multimodal pain control, Tylenol, scaled hydromoprhine for breakthrough pain, continue lidocaine patch. [facility] was called to update on patient admission status. They are aware that he is pending placement and currently hemodynamically stable. No clinical changes 07/25. 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 Takes Ozempic on Tuesdays Patient greatly prefers to continue his metformin if at all possible. This was resumed, hold if any signs of acidosis or worsening renal function develop. Good glycemic control so far. Basal deferred due to weekly Ozempic use Continue SSI Goal BSG [id number] Last A1c well-controlled 6.8% (5) COPD with emphysema: Plan: COPD Gold class B Continue Stiolto No acute exacerbation, no acute change in management (6) Coronary artery calcification: Plan: Coronary calcification Without myocardial ischemia, with an active lifestyle, no medical CAD Statin continued Patient is not on any antiplatelet agent EKG: Normal sinus rhythm without acute territorial ischemic change Plan DVT prophylaxis: Lovenox Diet: Regular Disposition: Downgraded to [facility], clinically stable. Pending placement CODE STATUS: Full code Admission and Anticipated Discharge Date Admission Date: July 23, 2024 Gerri Ledesma is seen at the bedside. Doing well. He is a little constipated and would like a stool softener. Notes that his bowels are normally more regular when he takes his metformin and since this has been converted to insulin while inpatient stools have been more firm. He greatly prefers to resume his metformin if at all possible. Otherwise no questions or concerns at bedside. [facility] has been notified of patient's admission and he will require placement prior to eventual orthopedic surgery for his calcaneal fracture; hospitalist was notified and if transfer is desired they will reach out to our team either today or Friday. In the meantime he is pending placement. Physical Exam Physical Exam: General: A&Ox3. NAD. Cooperative. HEENT: Atraumatic, normocephalic. Vision and hearing grossly intact. Pupils equal and reactive to light. Pulm: CTAB A&P. -wheezes, -rales, -rhonchi. Symmetrical chest rise. No increased work of breathing. No respiratory distress. Thorax: Remains with tenderness to palpation overlying right anterior eighth rib and at the right parasternal border. No signs of flail chest. Cardiac: RRR, -mrg. Radial pulses intact and symmetrical. Extremity: Right lower extremity with splint in place around ankle and foot. Able to wiggle toes without difficulty. No signs of vascular compromise Results & Data Results & Data Vital Signs (Past 12 Hours) Vital Signs Temp Pulse Pulse Resp BP Pulse Ox O2 Del Method 07/25/24 11:43 36.3 C L 60 18 136/81 91 Room Air 07/25/24 10:36 66 07/25/24 07:41 36.5 C 64 18 120/78 93 Room Air 07/25/24 03:08 36.3 C L 67 18 137/83 90 Room Air PG Care Time/CCT Total # of Minutes Spent Total Time Spent with Patient: Total time spent is greater than 50% in coordination of care (as documented) at patient's floor/unit and/or counseling patient: Coding Level of Care Code 09714 SUB INP/OBS CARE 2/35MIN Diagnoses Fall W19.XXXA Calcaneus fracture, right S92.001A Calcaneus location: body Encounter type: initial encounter Fracture type: closed Closed rib fracture S22.39XA Type 2 diabetes mellitus without complication, without long-term current use of insulin E11.9 Diabetes mellitus associate merchandiser insulin use: without associate merchandiser use Diabetes mellitus complication status: without complication COPD with emphysema J43.9 Coronary artery calcification I25.10; I25.84 (2) Calcaneus fracture, right Calcaneus location: body Encounter type: initial encounter Fracture type: closed (4) DM type 2 (diabetes mellitus, type 2) Diabetes mellitus associate merchandiser insulin use: without fpc use Diabetes mellitus complication status: without complication Qualified Code(s): E11.9 - Type 2 diabetes mellitus without complications
[2024-07-26 08:52] LABS: Basophils # (auto) 0.03 K/uL (0.00-0.20); Basophils % (auto) 0.4 %; Eosinophils # (auto) 0.26 K/uL (0.00-0.50); Eosinophils % (auto) 3.4 %; Hematocrit (blood only) 42.8 % (42.0-52.0); Hemoglobin 14.1 g/dl (14.0-18.0); Immature Granulocytes # (auto) 0.03 K/uL (0.01-0.20); Immature Granulocytes % (auto) 0.4 %; Lymphocytes # (auto) 1.96 K/uL (1.20-3.40); Lymphocytes % (auto) 25.7 %; Mean Corpuscular Hemoglobin 28.5 pg (25.0-34.0); Mean Corpuscular Hgb Conc 32.9 g/dL (32.0-36.0); Mean Corpuscular Volume 86.6 fL (80.0-100.0); Mean Platelet Volume 9.3 fL (9.4-12.4); Monocytes # (auto) 0.66 K/uL (0.11-0.59); Monocytes % (auto) 8.7 %; Neutrophils # (auto) 4.69 K/uL (1.40-6.50); Neutrophils % (auto) 61.4 %; Platelet Count 325 K/uL (130-400); RDW Coefficient of Variation 12.8 % (11.5-14.5); RDW Standard Deviation 40.2 fL (36.4-46.3); Red Blood Count 4.94 M/uL (4.70-6.10); White Blood Count 7.63 K/ul (4.8-10.8)
[2024-07-26 09:12] LABS: BUN Creatinine Ratio 16.8 (10-20); Calcium 9.6 mg/dl (8.6-10.3); Creatinine Clr Calc Pharmacy 87.4 ml/min; Potassium 4.2 mmol/L (3.5-5.1)
--- NOTE | 2024-07-26 12:33 | Hospitalist Progress Note ---
Date of Service July 26, 2024 Assessment & Plan (1) Fall: Plan: Mechanical fall from a ladder while he was building a shed at his house. Supportive care. CThead: No intracranial abnormalities. CTC-spine: No acute fracture/subluxation. CTA/P: No acute intra-abdominal abnormality. No solid organ injury of the abdominal viscera. Acute nondisplaced right eighth rib fracture and costal cartilage fractures. X-ray pelvis: No fracture of the pelvis or hips (2) Calcaneus fracture, right: Plan: Orthopedic consult and recommendations appreciated. Nonweightbearing status. He will need surgical intervention at a later date. Pain control measures (3) Closed rib fracture: Plan: Right side. No evidence of flail chest. Pain control measures (4) DM type 2 (diabetes mellitus, type 2): Plan: ADA diet. Metformin has been restarted. He takes Ozempic at home. Sliding scale coverage as needed. Last A1c 6.8% (5) COPD with emphysema: Plan: Stable. Continue current medical management (6) Coronary artery calcification: Plan: Stable. Continue current medical management Plan Medically stable for discharge to [facility] when arrangements are finalized Admission and Anticipated Discharge Date Admission Date: July 23, 2024 Subjective Alert and oriented. Case discussed with orthopedic surgery. He will need right heel surgery at a later date when the traumatic edema subsides. For now he is nonweightbearing to the right foot. Case management entry noted. He will not be transferred to the [facility] due to bed and availability. [facility] placement remains pending. He is medically stable for discharge to [facility]. Review of Systems 2 Review of Systems: Constitutionalno fever or chills ENTno blurred vision, no double vision, no epistaxis, no sore throat Respiratoryno cough, no wheezing, no shortness of breath Cardiacno palpitations, no chest pain, no syncope Becky nausea, vomiting, diarrhea, melena, hematochezia GUno urinary retention, no urinary incontinence, no dysuria, no hematuria Musculoskeletalright rib discomfort from underlying fracture. Right heel discomfort from underlying fracture. Skinno rashes, no pruritus Neurono isolated weakness, no paresthesia Psychno depression, no anxiety Physical Exam 2 Physical Exam: General-alert and oriented x3, no fever, no chills HEENT-head atraumatic and normocephalic, pupils equal and reactive to light, extraocular muscles intact Neck-no lymphadenopathy or thyromegaly, trachea midline Chest-clear to auscultation. No rales, wheezing or rhonchi Cardiac-regular rate and rhythm, normal S1 and S2 Abdomen-normal bowel sounds, no hepatosplenomegaly Musculoskeletaltender right lateral ribs Extremities-no cyanosis, clubbing, or edema Neuro-cranial nerves II through XII intact, motor and sensory function within normal limits, strength symmetrical, no focal deficits Psych-normal affect, normal mood Results & Data Results & Data Vital Signs (Past 12 Hours) Vital Signs Temp Pulse Resp BP Pulse Ox O2 Del Method 07/26/24 07:54 36.5 C 63 16 128/83 94 Room Air 07/26/24 03:10 65 16 135/87 96 Room Air Laboratory Results 07/26/24 07:54 07/26/24 07:54 PG Care Time/CCT Total # of Minutes Spent Total Time Spent with Patient: Total time spent is greater than 50% in coordination of care (as documented) at patient's floor/unit and/or counseling patient: Coding Level of Care Code 23397 SUB INP/OBS CARE 2/35MIN Diagnoses Fall W19.XXXA Calcaneus fracture, right S92.001A Calcaneus location: body Encounter type: initial encounter Fracture type: closed Closed rib fracture S22.39XA Type 2 diabetes mellitus without complication, without long-term current use of insulin E11.9 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
[2024-07-27 10:03] LABS: Creatinine Clr Calc Pharmacy 78.6 ml/min
--- NOTE | 2024-07-27 11:54 | Orthopedic Progress Note ---
Date of Service July 27, 2024 Assessment & Plan (1) Calcaneus fracture, right: Plan: Feeling better today. [facility] He would like something more local. I will discuss with Dr. Ray and see if he is able to accommodate. Patient is keep his foot elevated with no weight on it. His capillary refill was less than 2 seconds swelling was minimal and he could wiggle his toes. He is on Lovenox for DVT prophylaxis. Admission and Anticipated Discharge Date Admission Date: July 23, 2024 (1) Calcaneus fracture, right Calcaneus location: body Encounter type: initial encounter Fracture type: closed
--- NOTE | 2024-07-27 13:55 | Hospitalist Progress Note ---
Date of Service July 27, 2024 Assessment & Plan (1) Fall: Plan: Mechanical fall from a ladder while he was building a shed at his house. Supportive care. CThead: No intracranial abnormalities. CTC-spine: No acute fracture/subluxation. CTA/P: No acute intra-abdominal abnormality. No solid organ injury of the abdominal viscera. Acute nondisplaced right eighth rib fracture and costal cartilage fractures. X-ray pelvis: No fracture of the pelvis or hips (2) Calcaneus fracture, right: Plan: Orthopedic consult and recommendations appreciated. Nonweightbearing status. He will need surgical intervention at a later date. Consult pending for orthopedic foot surgery. Pain control measures (3) Closed rib fracture: Plan: Right side. No evidence of flail chest. Pain control measures (4) DM type 2 (diabetes mellitus, type 2): Plan: ADA diet. Metformin has been restarted. He also takes Ozempic at home. Sliding scale coverage as needed. Last A1c 6.8% (5) COPD with emphysema: Plan: Stable. Continue current medical management (6) Coronary artery calcification: Plan: Stable. Continue current medical management Plan Medically stable for discharge to [facility] when arrangements are finalized Admission and Anticipated Discharge Date Admission Date: July 23, 2024 Subjective Alert and oriented. No new problems. Case discussed with orthopedic surgery. Orthopedic foot surgery consultation requested. Glucose stable at 106. Apparently there is no bed available at the local [place]. Placement at [facility] is pending Review of Systems 2 Review of Systems: Constitutionalno fever or chills ENTno blurred vision, no double vision, no epistaxis, no sore throat Respiratoryno cough, no wheezing, no shortness of breath Cardiacno palpitations, no chest pain, no syncope Becky nausea, vomiting, diarrhea, melena, hematochezia GUno urinary retention, no urinary incontinence, no dysuria, no hematuria Musculoskeletalright rib discomfort from underlying fracture. Right heel discomfort from underlying fracture. Skinno rashes, no pruritus Neurono isolated weakness, no paresthesia Psychno depression, no anxiety Physical Exam 2 Physical Exam: General-alert and oriented x3, no fever, no chills HEENT-head atraumatic and normocephalic, pupils equal and reactive to light, extraocular muscles intact Neck-no lymphadenopathy or thyromegaly, trachea midline Chest-clear to auscultation. No rales, wheezing or rhonchi Cardiac-regular rate and rhythm, normal S1 and S2 Abdomen-normal bowel sounds, no hepatosplenomegaly Musculoskeletaltender right lateral ribs Extremities-no cyanosis, clubbing, or edema Neuro-cranial nerves II through XII intact, motor and sensory function within normal limits, strength symmetrical, no focal deficits Psych-normal affect, normal mood Results & Data Results & Data Vital Signs (Past 12 Hours) Vital Signs Temp Pulse Resp BP BP Pulse Ox O2 Del Method 07/27/24 11:53 66 134/79 07/27/24 11:10 36.8 C 59 L 16 100/61 95 Room Air 07/27/24 10:07 16 07/27/24 08:09 36.9 C 65 14 118/79 92 Room Air Laboratory Results 07/26/24 07:54 07/27/24 09:18 PG Care Time/CCT Total # of Minutes Spent Total Time Spent with Patient: Total time spent is greater than 50% in coordination of care (as documented) at patient's floor/unit and/or counseling patient: Coding Level of Care Code 42091 SUB INP/OBS CARE 2/35MIN Diagnoses Fall W19.XXXA Calcaneus fracture, right S92.001A Calcaneus location: body Encounter type: initial encounter Fracture type: closed Closed rib fracture S22.39XA Type 2 diabetes mellitus without complication, without long-term current use of insulin E11.9 Diabetes mellitus predatory animal exterminator insulin use: without mcfp use Diabetes mellitus complication status: without complication COPD with emphysema J43.9 Coronary artery calcification I25.10; I25.84 (2) Calcaneus fracture, right Calcaneus location: body Encounter type: initial encounter Fracture type: c losed (4) DM type 2 (diabetes mellitus, type 2) Diabetes mellitus predatory animal exterminator insulin use: without mcfp use Diabetes mellitus complication status: without complication Qualified Code(s): E11.9 - Type 2 diabetes mellitus without complications
--- NOTE | 2024-07-27 15:47 | Orthopedic Consultation ---
Date of Consultation July 27, 2024 Assessment & Plan (1) Calcaneus fracture, right: (2) Closed rib fracture: (3) COPD with emphysema: (4) Fall: (5) Fracture of talus of right ankle, closed: (6) Fracture of cuboid, right ankle, closed: Plan Baltazar is a 68-year-old gentleman who sustained a fall last Friday from approximately 8 feet onto his right lower extremity and right chest wall. He sustained rib fractures of the right chest wall as well as an intra-articular fracture of his right calcaneus. This is a closed injury. Dr. Rodriguez was initially consulted as he was on-call over the weekend. Per his notes, which were reviewed, the patient was to be transferred to the [place] for follow-up care, however, as this was causing difficulty, Dr. Rodriguez asked instead that I see evaluate the patient. I had a long discussion with the patient regarding the nature of this injury. We discussed in great detail the pathoanatomy, pathophysiology, treatment options. I explained to the patient in no uncertain terms that a calcaneus fracture requires a significant amount of force in order to cause this type of injury. I explained that due to the force that his calcaneus saw as well as the intra-articular nature of this fracture, with or without surgery, he is at a very high risk of posttraumatic osteoarthrosis. I also explained to him that with or without surgery, calcaneus fractures can take up to 3 months to completely heal, and as such, he will be nonweightbearing for a significant amount of time. I explained to the patient that there is mixed literature surrounding appropriate management of calcaneus fractures. I discussed with him that in general, goals of operative management are for anatomic episcopal of the joint line, making sure the heel is out of varus, and reestablishing tuberosity height. While the patient does have a relatively close to anatomically reduced joint line (with the exception of the posterior aspect of the fracture), he does have a significant loss of calcaneal height as well as significant drift of the tuberosity into varus. I expressed to him that due to this loss of height and drift into varus, even after the calcaneus heals without surgery, the mechanics of his ankle and subtalar joint would be affected and I suspect that he would have sooner development of arthritic change at the ankle and subtalar joint. Additionally, he would likely lose some ability to dorsiflex his ankle due to a horizontal talus from loss of tuberosity height. I did explain to him that there are significant risks associated with operative management of calcaneus fractures. We discussed the risk of loss of life/limb, DVT, incomplete relief of pain, need for additional surgery, infection, wound healing complications, prominent hardware, nonunion, malunion, iatrogenic injury to bone/tendon/nerve/vessel. I did explain to him that the risk of wound healing complications after calcaneus surgery is much higher than after other orthopedic surgeries. The patient expressed understanding to this. I did not make or imply any promises or guarantees to the patient. all of his questions were answered. Through shared decision making, the patient has elected to proceed with operative management. Our plan for operative management will be to use a minimal incision technique due to the relatively nondisplaced nature of these fractures, however we may have to do an extensile approach if reduction is difficult. additionally he will require heel cord lengthening to take pressure off the tuberosity reduction. I do not believe that his talus nor his cuboid need operative fixation, so these will be managed in a closed manner. I did discuss this all with the medicine attending. We will plan for operative intervention this 07/30/2024. Until that time, the patient should keep his limb elevated to reduce the swelling. I did explain that if the swelling is too severe at the time of surgery, we would perform a closed reduction with percutaneous stabilization and have to return to the OR for operative intervention once the swelling is amenable. Operative plan: Right calcaneus open reduction internal fixation with tendino- achilles lengthening versus gastrocnemius recession History of Present Illness Reason for Consultation: Right calcaneus fracture Requesting Physician: Dr. Freddie Rodriguez, Dr. Yuan Olsen Attending Physician: Yuan Olsen MD History of Present Illness This is a 68 show gentleman who initially presented to [facility] on 07/23/2024 after a fall from about 8 feet. Patient was building a small addition onto his mother's home when he fell. He fell onto an outstretched right leg striking his heel first and then fell forward striking his ribs on the ladder. He did not hit his head or lose consciousness. He has no headache. No lightheadedness, dizziness. He does have pain in his right ribs where he hit them on the ladder. He has no left-sided chest pain and has no anginal symptoms. He reports he is very active at baseline. He has a past medical history of type 2 diabetes, COPD, CAD, BPH. He is not on any antiplatelet agents or anticoagulants. Allergies Allergy/AdvReac Type Severity Reaction Status Date / Time bee venom protein (honey bee) Allergy Severe Anaphylaxis--WASP Verified 03/04/24 09:07 & YELLOW JACKETS No Known Drug Allergies Allergy Verified 03/04/24 09:07 Home Medications Medication Instructions Recorded Confirmed Type atorvastatin 10 mg tablet 10 mg PO QAM #90 tabs 10/07/22 07/23/24 Rx epinephrine 0.3 mg/0.3 mL 0.3 mg (0.3 mL) IM Q10M PRN 11/04/22 07/23/24 Rx injection, auto-injector (EpiPen) Anaphylaxis #2 ea omeprazole 20 mg capsule,delayed 20 mg PO DAILY #90 caps 05/13/23 07/23/24 Rx release metformin 500 mg tablet,extended 500 mg PO DAILY 09/05/23 07/23/24 History release 24 hr tiotropium 2.5 mcg-olodaterol 2.5 2 puff inhalation DAILY #4 grams 10/02/23 07/23/24 Rx mcg/actuation mist for inhalation (Stiolto Respimat) potassium gluconate 600 mg (99 mg) 600 mg PO DAILY 03/04/24 07/23/24 History tablet semaglutide 0.25 mg or 0.5 mg (2 1 mg subcut Q7D 03/04/24 07/23/24 History mg/3 mL) subcutaneous pen injector (Ozempic) Vitamin D3 1 tab PO DAILY 07/23/24 07/23/24 History tamsulosin 0.4 mg capsule (Flomax) 0.8 mg PO QAM 07/23/24 07/23/24 History Patient History Medical History Emphysema lung History of COVID-19 08/2021 headache, fever, cough, sob; c/o ongoing "mild lung congestion" NO HOS[facility]ITAL Rectal prolapse Internal hemorrhoids Pain, foot, chronic Venous insufficiency of both lower extremities History of tobacco use Quit 2015 Pericarditis (2016) H/o - follows with Dr. Brown Degenerative disc disease Cervical spondylosis Chronic viral hepatitis C Treated and in remission Peyronie's disease Tinnitus Bilateral Surgical History History of right cataract surgery H/O umbilical hernia repair (12/26/21) Open Umbilical Hernia Repair - Maldonado Jacobson DO, FACS 12/26/2021 History of tooth extraction all teeth History of colonoscopy History of tonsillectomy History of fusion of cervical spine normal ROM History of arthroscopy of left knee X3 Family History Father Diabetes Heart disease, Onset Age: 56 Heart attack Cardiac disorder Hypertension Brother Diabetes Hypertension Mother Hypertension Rectal prolapse Other No family history of adverse response to anesthesia Denies family history of Prostate cancer Colorectal cancer Social History Smoking Status: Former smoker Tobacco Type: Cigarettes Age Started Using Tobacco: 17; Age Quit Using Tobacco: 60; packs per day: 1; Second Hand Exposure: No (parents smoked); Do You Dip or Chew Tobacco: No; Hx Alcohol Use: Yes Alcohol type: beer, wine and hard liquor Alcohol Intake Frequency: 2-3 x/Week Hx Substance Use: Yes Preferred Language: Irish Communication Ability: Effective Visual Impairment: Diminished Hearing Ability: Normal Byproduct Engineer Required: No Beliefs That Will Affect Care: None marital status: Current Living Situation: Other Current Living Situation Comment: 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 This was split and the skin was examined. He has moderate to severe soft tissue swelling noted. There is a small medical sign evident. He has ecchymosis noted without open wounds. No evidence of skin at risk at this juncture. He is tender palpate around his calcaneus. He is nontender in the forefoot. He has diminished sensation in the sural nerve distribution likely secondary to swelling. Results & Data Vital Signs (Past 12 Hours) Vital Signs Temp Pulse Resp BP BP Pulse Ox O2 Del Method 07/27/24 11:53 66 134/79 07/27/24 11:10 36.8 C 59 L 16 100/61 95 Room Air 07/27/24 10:07 16 07/27/24 08:09 36.9 C 65 14 118/79 92 Room Air Diagnostic Findings I personally interpreted and reviewed the orthopedic imaging available. This include x-rays of the right ankle, x-rays of the left knee, x-rays of CT of the right ankle. These images demonstrate no acute osseous abnormalities of the left lower extremity. The patient does have an intra-articular joint depressed variant of a calcaneus fracture on the right. He christ significant superior displacement of the tuberosity. The tuberosity is also in significant varus. The patient does have small avulsion fractures of the lateral process of the talus as well as of the cuboid. (1) Calcaneus fracture, right Calcaneus location: body Encounter type: initial encounter Fracture type: closed
--- NOTE | 2024-07-27 16:31 | XRay Report ---
XR calcaneus RT min 2V HISTORY: 68 years-old Male axial view needed and lateral post splinting COMPARISON: CT right ankle 07/24/2024 TECHNIQUE: 2 views of the casted right hindfoot FINDINGS: Limited study secondary to overlying cast material. Acute cuboid fracture redemonstrated with unchang ed alignment. Acute comminuted intra-articular calcaneal fracture with displacement measuring up to 4 mm, similar to prior. There is persistent soft tissue swelling. Mild osteoarthritis. IMPRESSION: 1. Acute, comminuted intra-articular mildly displaced calcaneal fracture with unchanged alignment. 2. Acute nondisplaced cuboid fracture. ACT 112: Negative or not required by law. The above report was generated using voice recognition software. It may contain grammatical, syntax o r spelling errors. Electronically signed by: Jimmy Lincoln M.D. 07/27/2024 4:29 PM
--- NOTE | 2024-07-28 12:04 | Hospitalist Progress Note ---
Date of Service July 28, 2024 Assessment & Plan (1) Fall: Plan: Mechanical fall from a ladder while he was building a shed at his house. Supportive care. CThead: No intracranial abnormalities. CTC-spine: No acute fracture/subluxation. CTA/P: No acute intra-abdominal abnormality. No solid organ injury of the abdominal viscera. Acute nondisplaced right eighth rib fracture and costal cartilage fractures. X-ray pelvis: No fracture of the pelvis or hips (2) Calcaneus fracture, right: Plan: Orthopedic consult and recommendations appreciated. Nonweightbearing status. Surgical intervention planned for this July 30. Pain control measures (3) Closed rib fracture: Plan: Right side. No evidence of flail chest. Pain control measures (4) DM type 2 (diabetes mellitus, type 2): Plan: Controlled. ADA diet. Metformin has been restarted. He also takes Ozempic at home. Sliding scale coverage as needed. Last A1c 6.8% (5) COPD with emphysema: Plan: Stable. Continue current medical management (6) Coronary artery calcification: Plan: Stable. Continue current medical management Plan Surgical intervention on right calcaneal fracture and right ankle fracture this July 30 Admission and Anticipated Discharge Date Admission Date: July 23, 2024 Subjective Alert and oriented. No new problems. He was seen by Dr. Riki Ray and will undergo surgical repair of the right calcaneal and ankle fracture this July 30. He has developed a peroneal rash. Mycolog ointment ordered. Review of Systems 2 Review of Systems: Constitutionalno fever or chills ENTno blurred vision, no double vision, no epistaxis, no sore throat Respiratoryno cough, no wheezing, no shortness of breath Cardiacno palpitations, no chest pain, no syncope Becky nausea, vomiting, diarrhea, melena, hematochezia GUno urinary retention, no urinary incontinence, no dysuria, no hematuria Musculoskeletalright rib discomfort from underlying fracture. Right heel discomfort from underlying fracture. Skinno rashes, no pruritus Neurono isolated weakness, no paresthesia Psychno depression, no anxiety Physical Exam 2 Physical Exam: General-alert and oriented x3, no fever, no chills HEENT-head atraumatic and normocephalic, pupils equal and reactive to light, extraocular muscles intact Neck-no lymphadenopathy or thyromegaly, trachea midline Chest-clear to auscultation. No rales, wheezing or rhonchi Cardiac-regular rate and rhythm, normal S1 and S2 Abdomen-normal bowel sounds, no hepatosplenomegaly Musculoskeletaltender right lateral ribs Extremities-no cyanosis, clubbing, or edema. Right foot and ankle are immobilized and heavily bandaged Neuro-cranial nerves II through XII intact, motor and sensory function within normal limits, strength symmetrical, no focal deficits Psych-normal affect, normal mood Results & Data Results & Data Vital Signs (Past 12 Hours) Vital Signs Temp Pulse Resp BP Pulse Ox O2 Del Method 07/28/24 07:50 36.4 C L 57 L 18 120/78 96 Room Air Laboratory Results 07/26/24 07:54 07/27/24 09:18 PG Care Time/CCT Total # of Minutes Spent Total Time Spent with Patient: Total time spent is greater than 50% in coordination of care (as documented) at patient's floor/unit and/or counseling patient: Coding Level of Care Code 35871 SUB INP/OBS CARE 2/35MIN Diagnoses Fall W19.XXXA Calcaneus fracture, right S92.001A Calcaneus location: body Encounter type: initial encounter Fracture type: closed Closed rib fracture S22.39XA Type 2 diabetes mellitus without complication, without long-term current use of insulin E11.9 Diabetes mellitus mcfp insulin use: without keno terminal operator use Diabetes mellitus complication status: without complication COPD with emphysema J43.9 Coronary artery calcification I25.10; I25.84 (2) Calcaneus fracture, right Calcaneus location: body Encounter type: initial encounter Fracture type: c losed (4) DM type 2 (diabetes mellitus, type 2) Diabetes mellitus keno terminal operator insulin use: without keno terminal operator use Diabetes mellitus complication status: without complication Qualified Code(s): E11.9 - Type 2 diabetes mellitus without complications
[2024-07-28] MEDS: NYSTATIN/TRIAMCIN OINT 15 GM TUBE EXT SCH (16:29)
--- NOTE | 2024-07-29 13:20 | Hospitalist Progress Note ---
Date of Service July 29, 2024 Assessment & Plan (1) Fall: Plan: Mechanical fall from a ladder while he was building a shed at his house. Supportive care. CThead: No intracranial abnormalities. CTC-spine: No acute fracture/subluxation. CTA/P: No acute intra-abdominal abnormality. No solid organ injury of the abdominal viscera. Acute nondisplaced right eighth rib fracture and costal cartilage fractures. X-ray pelvis: No fracture of the pelvis or hips (2) Calcaneus fracture, right: Plan: Orthopedic consult and recommendations appreciated. Nonweightbearing status. Surgical intervention planned for this July 30. Pain control measures (3) Closed rib fracture: Plan: Right side. No evidence of flail chest. Pain control measures (4) DM type 2 (diabetes mellitus, type 2): Plan: Controlled. ADA diet. Metformin has been restarted. He also takes Ozempic at home. Sliding scale coverage as needed. Last A1c 6.8% (5) COPD with emphysema: Plan: Stable. Continue current medical management (6) Coronary artery calcification: Plan: Stable. Continue current medical management (7) Constipation: Plan: Scheduled dosing of MiraLAX and Colace twice daily (8) Superficial thrombophlebitis of arm: Plan: Appears to be due to a previous IV site. Heating pad ordered Plan Surgical intervention on right calcaneal fracture and right ankle fracture tomorrow, July 30. SNF or IPR placement when arrangements finalized Admission and Anticipated Discharge Date Admission Date: July 23, 2024 Subjective Alert and oriented. Awaiting surgery for the right heel fracture tomorrowJuly 30. He is complaining of constipation. Scheduled doses of MiraLAX and Colace ordered twice daily. He has superficial thrombophlebitis on the medial aspect of the right forearm from an IV site. Heating pad has been ordered. Review of Systems 2 Review of Systems: Constitutionalno fever or chills ENTno blurred vision, no double vision, no epistaxis, no sore throat Respiratoryno cough, no wheezing, no shortness of breath Cardiacno palpitations, no chest pain, no syncope Becky nausea, vomiting, diarrhea, melena, hematochezia. He states he is constipated GUno urinary retention, no urinary incontinence, no dysuria, no hematuria Musculoskeletalright rib discomfort from underlying fracture. Right heel/ankle immobilized. Superficial thrombophlebitis medial right forearm Skinno rashes, no pruritus Neurono isolated weakness, no paresthesia Psychno depression, no anxiety Physical Exam 2 Physical Exam: General-alert and oriented x3, no fever, no chills HEENT-head atraumatic and normocephalic, pupils equal and reactive to light, extraocular muscles intact Neck-no lymphadenopathy or thyromegaly, trachea midline Chest-clear to auscultation. No rales, wheezing or rhonchi Cardiac-regular rate and rhythm, normal S1 and S2 Abdomen-normal bowel sounds, no hepatosplenomegaly Musculoskeletaltender right lateral ribs Extremities-no cyanosis, clubbing, or edema. Right foot and ankle are immobilized and heavily bandaged Neuro-cranial nerves II through XII intact, motor and sensory function within normal limits, strength symmetrical, no focal deficits Psych-normal affect, normal mood Results & Data Results & Data Vital Signs (Past 12 Hours) Vital Signs Temp Pulse Resp BP Pulse Ox O2 Del Method 07/29/24 08:10 36.5 C 63 20 128/82 96 Room Air Laboratory Results 07/26/24 07:54 07/27/24 09:18 PG Care Time/CCT Total # of Minutes Spent Total Time Spent with Patient: Total time spent is greater than 50% in coordination of care (as documented) at patient's floor/unit and/or counseling patient: Coding Level of Care Code 66857 SUB INP/OBS CARE 3/50MIN Diagnoses Fall W19.XXXA Calcaneus fracture, right S92.001A Calcaneus location: body Encounter type: initial encounter Fracture type: closed Closed rib fracture S22.39XA Type 2 diabetes mellitus without complication, without long-term current use of insulin E11.9 Diabetes mellitus custodial insulin use: without terminal system operator use Diabetes mellitus complication status: without complication COPD with emphysema J43.9 Coronary artery calcification I25.10; I25.84 Constipation K59.00 Superficial thrombophlebitis of arm I80.8 (2) Calcaneus fracture, right Calcaneus location: body Encounter type: initial encounter Fracture type: c losed (4) DM type 2 (diabetes mellitus, type 2) Diabetes mellitus terminal system operator insulin use: without custodial use Diabetes mellitus complication status: without complication Qualified Code(s): E11.9 - Type 2 diabetes mellitus without complications
[2024-07-29] MEDS: POLYETHYLENE (MIRALAX) 17 GM PACK PO SCH (13:49)
[2024-07-29] MEDS: DOCUSATE SODIUM 100 MG CAP PO SCH (13:49)
[2024-07-29] MEDS ORDERED: Nursing to Pharmacy Communication SCH (21:15)
[2024-07-30] MEDS: INSULIN ASPART PER UNIT CHARGE SC SCH ×2 (00:13→17:06)
[2024-07-30] MEDS ORDERED: ROPIVACAINE 0.5% 5 MG/ML 30 ML VIAL ONE (06:24)
[2024-07-30] MEDS ORDERED: ONDANSETRON INJ 2 MG/ML 2 ML VIAL ONE ×2 (06:46→10:39)
[2024-07-30] MEDS ORDERED: PROPOFOL IV EMULSION 10 MG/ML 20 ML VIAL IV ONE (06:46)
[2024-07-30] MEDS ORDERED: LIDOCAINE 2% 2 ML VIAL/AMP(20MG/ML) INFIL ONE (06:46)
[2024-07-30] MEDS ORDERED: fentaNYL citrate PF 100 MCG/2 ML VIAL ONE ×2 (06:46→09:43)
[2024-07-30] MEDS ORDERED: DEXAMETHASONE SOD INJ 4 MG/ML VIAL ONE (06:46)
[2024-07-30] MEDS ORDERED: MIDAZOLAM HCL 1 MG/ML 2ML VIAL ONE (06:46)
[2024-07-30] MEDS ORDERED: ROCURONIUM BROMIDE 10 MG/ML 5 ML VIAL IV ONE ×2 (06:46→09:18)
[2024-07-30] MEDS ORDERED: SUGAMMADEX SODIUM 200 MG/2 ML VIAL IV ONE (06:47)
[2024-07-30] MEDS ORDERED: fentaNYL citrate PF 100 MCG/2 ML VIAL IV PRN (06:52)
[2024-07-30] MEDS ORDERED: ePHEDrine sulfate 50 MG/ML AMP IV PRN (06:52)
[2024-07-30] MEDS ORDERED: ATROPINE SULFATE 0.1 MG/ML 10ML SYR IV PRN (06:52)
[2024-07-30] MEDS ORDERED: HYDROmorphone INJ 1 MG/ML SYRINGE IV PRN (06:52)
--- NOTE | 2024-07-30 06:57 | Anesthesiology Consultation ---
Date of Service July 30, 2024 Assessment & Plan (1) Encounter for pre-operative examination: Chart Review Chart Review: Acceptable Risk for Surgery and Patient NOT seen in Pre Admission Testing Consults Requested none History Surgery Operation Date: 07/30/24 07:15 Proposed Procedures p Right Calcaneal Fracture Open Reduction Internal Fixation Versus Gastroc Recession - Riki Ray DO s Tendon Achilles Lengthening - Riki Ray DO Height/Weight Height: 5 ft 10.5 in Weight: 110.5 kg Allergies Allergy/AdvReac Type Severity Reaction Status Date / Time bee venom protein (honey bee) Allergy Severe Anaphylaxis--WASP Verified 07/30/24 06:26 & YELLOW JACKETS No Known Drug Allergies Allergy Unknown Verified 07/30/24 06:26 Medications Home Medications Medication Instructions Recorded Confirmed Last Taken atorvastatin 10 mg tablet 10 mg PO QAM #90 tabs 10/07/22 07/23/24 Unknown epinephrine 0.3 mg/0.3 mL 0.3 mg (0.3 mL) IM Q10M PRN 11/04/22 07/23/24 Unknown injection, auto-injector (EpiPen) Anaphylaxis #2 ea omeprazole 20 mg capsule,delayed 20 mg PO DAILY #90 caps 05/13/23 07/23/24 Unknown release metformin 500 mg tablet,extended 500 mg PO DAILY 09/05/23 07/23/24 Unknown release 24 hr tiotropium 2.5 mcg-olodaterol 2.5 2 puff inhalation DAILY #4 grams 10/02/23 07/23/24 Unknown mcg/actuation mist for inhalation (Stiolto Respimat) potassium gluconate 600 mg (99 mg) 600 mg PO DAILY 03/04/24 07/23/24 Unknown tablet semaglutide 0.25 mg or 0.5 mg (2 1 mg subcut Q7D 03/04/24 07/23/24 Unknown mg/3 mL) subcutaneous pen injector (Ozempic) Vitamin D3 1 tab PO DAILY 07/23/24 07/23/24 Unknown tamsulosin 0.4 mg capsule (Flomax) 0.8 mg PO QAM 07/23/24 07/23/24 Unknown Active Medications Generic Name Dose Route Start Last Admin Trade Name Freq PRN Reason Stop Dose Admin Acetaminophen 1,000 mg 07/24/24 06:00 07/30/24 05:21 Acetaminophen 500 Mg Tab PO 08/23/24 05:59 Not Given Q8H IRENE Atorvastatin Calcium 10 mg 07/24/24 09:00 07/29/24 08:41 Atorvastatin 10 Mg Tab PO 08/23/24 08:59 10 mg QAM IRENE Administration Calcium Carbonate 500 mg 07/24/24 22:22 07/24/24 22:38 Calcium Carbonate 500 Mg Chewable Tab PO 08/23/24 22:21 500 mg Q4H PRN Administration Indigestion Docusate Sodium 100 mg 07/29/24 13:15 07/29/24 20:19 Docusate Sodium 100 Mg Cap PO 08/28/24 13:14 100 mg BID IRENE Administration Enoxaparin Sodium 40 mg 07/25/24 09:00 07/29/24 08:45 Enoxaparin Inj 40 Mg/0.4 Ml Syr SQ 08/24/24 08:59 40 mg DAILY IRENE Administration Hydromorphone HCl 0.5 mg 07/24/24 12:27 07/30/24 05:40 Hydromorphone Inj 0.5 Mg/0.5 Ml Syr IV 08/07/24 00:06 0.5 mg Q2H PRN Administration Pain, breakthough moderate Insulin Aspart 0 units 07/30/24 00:00 07/30/24 05:21 Insulin Aspart Per Unit Charge SC 08/22/24 20:59 Not Given Q6 IRENE Metformin HCl 500 mg 07/25/24 11:00 07/29/24 08:40 Metformin Hcl Er 500 Mg Tabcr PO 08/24/24 10:59 500 mg QAM IRENE Administration Nystatin/Triamcinolone Acetonide 1 appln 07/28/24 14:50 07/29/24 20:19 Nystatin/Triamcin Oint 15 Gm Tube EXT 08/27/24 14:49 1 appln BID IRENE Administration Oxycodone HCl 10 mg 07/24/24 12:25 07/27/24 20:03 Oxycodone Hcl 10 Mg Tabcr (Oxycontin) PO 08/07/24 12:29 10 mg Q12H PRN Administration pain Pantoprazole Sodium 40 mg 07/24/24 09:00 07/29/24 08:40 Pantoprazole 40 Mg Tab PO 08/23/24 08:59 40 mg DAILY IRENE Administration Polyethylene Glycol 17 gm 07/29/24 13:15 10/31/24 20:19 Polyethylene (Miralax) 17 Gm Pack PO 08/28/24 13:14 Not Given BID IRENE Potassium Chloride 20 meq 07/24/24 10:15 07/29/24 08:44 Potassium Chloride Crtab 20 Meq Tabcr PO 08/23/24 10:14 20 meq QAM IRENE Administration Tamsulosin HCl 0.8 mg 07/24/24 09:00 07/29/24 08:40 Tamsulosin Hcl 0.4 Mg Cap PO 08/23/24 08:59 0.8 mg QAM IRENE Administration Umeclidinium/Vilanterol 1 puffs 07/24/24 09:00 07/29/24 08:42 Umeclidinium/Vilanterol 62.5/25mcg 7 Puffs/Inhaler INH 08/23/24 08:59 Not Given DAILY IRENE Vitamin D 10 mcg 07/24/24 10:15 07/29/24 08:42 Cholecalciferol 10 Mcg (400 Units) Tab PO 08/23/24 10:14 10 mcg QAM IRENE Administration NPO Date Last Intake of Fluids: 07/29/24 Time Last Intake of Fluids: 23:59 Date Last Intake of Solids: 07/29/24 Time Last Intake of Solids: 23:00 Past Medical History Medical History Emphysema lung History of COVID-19 08/2021 headache, fever, cough, sob; c/o ongoing "mild lung congestion" NO HOSPITAL Rectal prolapse Internal hemorrhoids Pain, foot, chronic Venous insufficiency of both lower extremities History of tobacco use Quit 2016 Pericarditis (2016) H/o - follows with Dr. Brown Degenerative disc disease Cervical spondylosis Chronic viral hepatitis C Treated and in remission Peyronie's disease Tinnitus Bilateral Exercise / Class Metabolic Activity II 4-5 Yardwork/Stairs/Walk up hill Past Family History Family History Father Diabetes Heart disease, Onset Age: 56 Heart attack Cardiac disorder Hypertension Brother Diabetes Hypertension Mother Hypertension Rectal prolapse Other No family history of adverse response to anesthesia Denies family history of Prostate cancer Colorectal cancer Past Surgical History Surgical History History of right cataract surgery H/O umbilical hernia repair (12/26/21) Open Umbilical Hernia Repair - Maldonado Jacobson DO, FACS 12/26/2021 History of tooth extraction all teeth History of colonoscopy History of tonsillectomy History of fusion of cervical spine normal ROM History of arthroscopy of left knee X3 Past Anesthesia History No Hx of Anesthesia Complications and No Family Hx of Anesthesia Complications Social History Smoking Status: Former smoker tobacco type: cigarettes Do You Dip or Chew Tobacco: No Hx Alcohol Use: Yes Alcohol type: beer, wine and hard liquor alcohol intake frequency: a few times a month Hx Substance Use: Yes substance use type: former substance user and marijuana Physical Exam Vital Signs Last Vital Signs Temp 36.8 C 07/30/24 06:34 Pulse 65 07/30/24 06:34 Resp 14 07/30/24 06:34 BP 123/77 07/30/24 06:34 Pulse Ox 95 07/30/24 06:34 O2 Del Method Room Air 07/30/24 06:34 Testing Laboratory Results 07/26/24 07:54 PT 10.9 Seconds (9.0-12.0) 07/23/24 14:35 INR 1.0 (0.9-1.1) 07/23/24 14:35 07/30/24 07/29/24 07/29/24 05:14 23:37 20:37 POC Glucose 90 89 93 Other Testing see chart for cxr and chest ct and ecg.
[2024-07-30 06:59] LABS: Creatinine Clr Calc Pharmacy 86.8 ml/min
--- NOTE | 2024-07-30 07:02 | History & Physical Bridge Note ---
Date of Service July 30, 2024 History & Physical Bridge Note I have examined the patient, reviewed the History & Physical and in the interval since the performance of the History & Physical I have noted the following changes of clinical significance: no changes noted I removed the patient's splint this morning. His skin is appropriate for surgical intervention. I expressed to him one more time the game plan for surgery will include attempt at minimal incision reduction and internal fixation, however if the reduction is too difficult, we would convert to an extensile lateral approach. Additionally, we discussed the potential need for gastrocnemius recession versus tendo Achilles lengthening. This will be decided based on the mobility of the tuberosity. I expressed to him 1 more time the risks of the surgery to include but not limited to loss of life/limb, DVT, infection, wound healing complications, nonunion, malunion, hardware complication, hardware failure, hardware prominence, posttraumatic osteoarthrosis, iatrogenic injury to bone/tendon/nerve/vessel. Patient expressed understanding to the risks and wished to proceed.
[2024-07-30] MEDS: LACTATED RINGER'S 1,000 ML IV SCH (07:05)
[2024-07-30] MEDS: ceFAZolin 2000MG 2,000 MG/15 ML SYR IV ONE ×2 (07:24→10:33)
[2024-07-30] MEDS ORDERED: PHENYLEPHRINE 100MCG/ML 5ML SYR ONE (07:53)
[2024-07-30] MEDS ORDERED: ePHEDrine sulfate 50 MG/5 ML SYR ONE (07:53)
[2024-07-30] MEDS ORDERED: ceFAZolin 330 MG/ML 1 GM VIAL ONE (10:30)
[2024-07-30] MEDS ORDERED: ALBUTEROL HFA 8 GM INHALER INH ONE (11:16)
[2024-07-30] MEDS: ONDANSETRON INJ 2 MG/ML 2 ML VIAL IV PRN (12:55)
--- NOTE | 2024-07-30 13:04 | Fluoroscopy Report ---
FL heel RT 2V CLINICAL HISTORY: RIGHT CALCANEAL FX ORIF COMPARISON STUDY: Right ankle CT July 24, 2024. Right calcaneus radiographs June 27, 2024. FLUOROSCOPY TIME: 3 minutes and 25 seconds. Ka,r : 6.514 mGy FLUOROSCOPIC IMAGES: 13 FINDINGS: Fluoroscopy was provided during open reduction and internal fixation of the right calcaneal fracture. There are no unexpected radiopaque foreign bodies. Expected postoperative findings are not ed. IMPRESSION: Fluoroscopy provided during open reduction and internal fixation of the right calcaneal fracture. ACT 112: Negative or not required by law. Electronically signed by: Vinicio Adame M.D. 07/30/2024 1:03 PM
--- NOTE | 2024-07-30 13:09 | Post Operative Brief Note ---
Immediate Post Op Note Date of Surgery July 30, 2024 Pre & Post Diagnosis Operation Date: 07/30/24 07:15 Pre-Op Diagnosis: Calcaneus fracture, right Post-Op Diagnosis: Calcaneus fracture, right I identified the patient and participated in the time-out.: Yes Procedure Operation Date: 07/30/24 07:15 Actual Procedures p Right Calcaneal Fracture Open Reduction Internal Fixation(Right) - Riki Ray DO Surgeon Riki Ray DO Business Risk Consultant none Estimated Blood Loss 200 Findings Consistent with Post-Op Diagnosis Drains Browne Catheter Complications none immediately apparant Disposition Disposition: Recovery Room Overlapping Procedure I was present for: the critical portions of procedure. (the entire surgery)
[2024-07-30] MEDS: PROMETHAZINE HCL 6.25 MG in SODIUM CHLORIDE 0.9% 50 ML IV PRN (13:20)
--- NOTE | 2024-07-30 13:44 | Anesthesiology Progress Note ---
Date of Service July 30, 2024 Anesthesia Post Procedure Vital Signs Vital Signs: Temp Pulse Pulse Pulse Resp BP BP 07/30/24 13:30 76 19 136/87 07/30/24 13:20 81 12 128/85 07/30/24 13:10 85 14 113/81 07/30/24 13:00 85 12 119/86 07/30/24 12:50 36.4 C L 84 15 112/74 07/30/24 12:40 84 13 126/82 07/30/24 12:30 87 12 111/86 07/30/24 12:20 90 15 129/87 07/30/24 12:10 90 14 118/75 07/30/24 12:03 36.1 C L 90 18 135/91 07/30/24 06:34 36.8 C 65 14 123/77 07/30/24 05:07 36.6 C 108 H 129/78 07/29/24 20:05 07/29/24 19:31 36.7 C 72 16 126/80 07/29/24 14:59 36.3 C L 69 18 133/83 Pulse Ox O2 Del Method O2 Flow Rate 07/30/24 13:30 94 Nasal Cannula 3 07/30/24 13:20 93 Nasal Cannula 3 07/30/24 13:10 92 Nasal Cannula 3 07/30/24 13:00 94 Nasal Cannula 4 07/30/24 12:50 92 Nasal Cannula 4 07/30/24 12:40 93 Nasal Cannula 4 07/30/24 12:30 95 Oxymask 7 07/30/24 12:20 95 Oxymask 15 07/30/24 12:10 92 Oxymask 15 07/30/24 12:03 92 Oxymask 15 07/30/24 06:34 95 Room Air 07/30/24 05:07 93 Room Air 07/29/24 20:05 Room Air 07/29/24 19:31 91 Room Air 07/29/24 14:59 94 Room Air Pain Intensity Right Ankle: Pain Intensity: 4 Right Heel: Pain Intensity: 7 Right Ribs: Pain Intensity: 5 Transfer of Care Handoff Completed per policy Notes Mental Status: alert / awake / arousable and participated in evaluation Patient Amnestic to Procedure: Yes Nausea / Vomiting: adequately controlled Pain: adequately controlled Airway Patency, RR, SpO2: stable & adequate BP & HR: stable & adequate Hydration State: stable & adequate Anesthetic Complications: no major complications apparent and Pt Satisfied with anesthetic care
[2024-07-30] MEDS: ceFAZolin 2,000 MG/15 ML IV PUSH IV ONE (14:25)
--- NOTE | 2024-07-30 14:31 | Operative Report ---
Post Operative Report Pre & Post Diagnosis Operation Date: 07/30/24 07:15 Pre-Op Diagnosis: Joint depressed calcaneus fracture, right, closed, initial encounter Post-Op Diagnosis: Joint depressed calcaneus fracture, right, closed, initial encounter I identified the patient and participated in the time-out.: Yes Procedure Operation Date: 07/30/24 07:15 Actual Procedures p Right Calcaneal Fracture Open Reduction Internal Fixation(Right) - Riki Ray DO 1. Open reduction internal fixation right calcaneus 2. Physician directed fluoroscopy greater than 1 hour 3. Application below-knee splint Koba right Surgeon Riki Ray DO Production Cook none Estimated Blood Loss 200 Findings See Below Joint depressed calcaneus fracture Fluids See anesthesia record Specimens None Drains None Anesthesia Type General Complications None immediately apparent Disposition Disposition: Recovery Room Indications This is a 68-year-old gentleman who sustained a fall while he was doing a home- improvement project for his mother. He fell onto an outstretched leg and sustained a joint depressed variant right calcaneus fracture as well as multiple rib fractures on the right side. He presented to the emergency department where x-rays and CT scan confirmed those findings. Initially the plan was for the patient to be transferred to the [facility] for medical care, however I was consulted about the patient later on during the week for management of his right calcaneus fracture. I had a long discussion with the patient regarding the nature of this injury. We discussed in great detail the pathoanatomy, pathophysiology, treatment options. I explained to the patient in no uncertain terms that a calcaneus fracture requires a significant amount of force in order to cause this type of injury. I explained that due to the force that his calcaneus saw as well as the intra-articular nature of this fracture, with or without surgery, he is at a very high risk of posttraumatic osteoarthrosis. I also explained to him that with or without surgery, calcaneus fractures can take up to 3 months to completely heal, and as such, he will be nonweightbearing for a significant amount of time. I explained to the patient that there is mixed literature surrounding appropriate management of calcaneus fractures. I discussed with him that in general, goals of operative management are for anatomic baptism of the joint line, making sure the heel is out of varus, and reestablishing tuberosity heigh t. While the patient does have a relatively close to anatomically reduced joint line (with the exception of the posterior aspect of the fracture), he does have a significant loss of calcaneal height as well as significant drift of the tuberosity into varus. I expressed to him that due to this loss of height and drift into varus, even after the calcaneus heals without surgery, the mechanics of his ankle and subtalar joint would be affected and I suspect that he would have sooner development of arthritic change at the ankle and subtalar joint. Additionally, he would likely lose some ability to dorsiflex his ankle due to a horizontal talus from loss of tuberosity height. I did explain to him that there are significant risks associated with operative management of calcaneus fractures. We discussed the risk of loss of life/limb, DVT, incomplete relief of pain, need for additional surgery, infection, wound healing complications, prominent hardware, nonunion, malunion, iatrogenic injury to bone/tendon/nerve/vessel. I did explain to him that the risk of wound healing complications after calcaneus surgery is much higher than after other orthopedic surgeries. The patient expressed understanding to this. I did not make or imply any promises or guarantees to the patient. all of his questions were answered. Through shared decision making, the patient has elected to proceed with op erative management. Description of Procedure After informed consent was obtained, the patient was correctly identified in the preoperative holding suite, the operative site was marked with the surgeon's initials, the date of surgery, and the word yes. The patient was then taken to the operative suite. The department of anesthesia administered general anesthesia. The patient was transferred from the [facility] and the [facility] to the operative table. All bony prominences were well-padded. Briefing and timeout was performed. All implants were available and sterile at the time. BRIEFING AND DEBRIEFING: Pre and post operative briefing and debriefing was performed. Introductions were made, goals of the procedure were discussed, questions and concerns were addressed. The operative site markings were identified and appropriate. A time [id number] was performed, the patient's correct identity was confirmed and the correct operative sites were identified. The patients pre-operative antibiotic dosing and administration was confirmed along with other SCIP measures. The team was polled at the completion of the surgery and all team members were in agreement that the procedure was without complication, the counts are correct, the wound class was identified and suggestions for improvement were shared. Patient was transferred from the hospital bed to the fashion he had a Browne catheter placed. He was then rolled and placed lateral decubitus with an axillary roll under his left chest wall and all additional bony prominences wel l-padded. A tourniquet was placed high on the patient's right thigh. The right lower extremity was prepped and draped in standard sterile fashion. We first began by attempting closed reduction maneuvers with minimal incisions. The 4.0 mm Schanz pin was placed into the tuberosity and inferior translation, valgus angulation, and medialization was attempted. The tuberosity could not be easily moved, so at this time we made the decision to convert to an extensile lateral approach. The relevant anatomy of the ankle was marked out including the posterior border the fibula and the lateral border of the Achilles tendon. We marked out the course of the sural nerve as it extends anteriorly towards the base the fifth metatarsal. We then elevated the limb, raised the tourniquet to 250 mmHg and this remained inflated for 130 minutes. It was not reinflated. The vertical limb of the extensile lateral incision was approximately 5 cm in length and was posterior of the mid axis between the posterior border the fibula and the Achilles tendon to protect the peroneal blood supply. The plantar limb was approximately 9 cm in length and aimed for the inferior one third of the anterior process. We incised sharply through skin and subcutaneous tissue and then took deep down to bone at the corner. We raised a subperiosteal fasciocutaneous flap making sure to protect the sural nerve in the anterior aspect of the incision. We identified the osseous reflection of the peroneal sheath and elevated this as well. The lateral wall blowout was immediately evident and the large lateral joint piece was immediately visualized. We cleared fracture hematoma using pituitary rongeurs and dental picks. The anterior process comminution was visualized and these pieces were deemed to be too small for adequate internal fixation. We then turned our attention medially and visualize the middle facet. This was contiguous with the medial aspect of the posterior facet. The lateral portion of the posterior facet joint surface was then elevated into place such that it was reduced to the medial side and held in place with 0.045 K wires. This maneuver created a single joint piece that was attached to the sustentaculum and to the anterior process. We then turned our attention towards realigning the tuberosity. We used a 2.5 mm drill to predrill and then placed a 4 mm Schanz pin through the tuberosity from lateral to medial ensuring that it was within bone on all views. We translated the tuberosity plantarly, pulled it into valgus, and translated it medially. We then held this in place with a series of 0.062 K wires. At this point, we were satisfied with the articular reduction. The tuberosity piece was still somewhat elevated, but certainly in a better position than previous. An additional reduction maneuver was then attempted and repinned, however the purchase of these K wires were not as robust, as such we made the decision to proceed with internal fixation at that time rather than re- try the reduction a third time. the tuberosity was out of varus and certainly more height had been acheived, however we had achieved less height than we anticipated. We selected the Synthes 2.7 mm variable angle locking calcaneal plate, size large. We then began anteriorly by drilling and placing 2.7 mm cortical screws to approximate the plate down to bone. We worked our way posteriorly, and next we examined the articular surface using a Aurora. This appeared to be appropriately reduced, as such we would place 2 lag screws across the joint. We lagged by technique first over drilling with a 2.7 mm drill and then with a 1.5 mm drill for the far cortex. We used the Aurora and radiographic views to ensure that the screws were not within the subtalar joint. Excellent compression was felt in this area. Next, we would use the posterior portion of the plate and a series of 2.7 mm nonlocking screws through all of the plate holes in the tuberosity to reapproximate the tuberosity to the plate thereby pulling it out of varus. We drilled, measured, and placed 2.7 mm nonlocking screws in all posterior holes that were available to us. We sequentially tightened them to pull the heel out of varus. We then turned our attention back anteriorly and now that the bone and plate were appropriately approximated, our previously placed nonlocking screws were too long, so we began by sequentially removing them and replacing them with appropriately sized locking screws. In total there were fourteen 2.7 mm VA locking screws used. We let down the tourniquet, ensure that the flap had viable blood supply, and then took final fluoroscopic views showing stable internal fixation. We then thoroughly irrigated the wound, and began our sequential closure. We used 2-0 Vicryl pop-off sutures in an inverted pattern to reapproximate the periosteum of the flap to the original site. This reapproximated nicely. We then used 4-0 nylon suture in vertical Allgower Donati fashion to reapproximate the skin edge and allow appropriate eversion. We placed brown Steri-Strips, Betadine soaked Adaptic, 4 x 4 fluffs, sterile Webril. We then placed the patient into a well-padded below knee trilaminar splint. The patient tolerated this procedure well and was transferred to the PACU in stable condition. Prior to transportation to PACU, all counts were correct and a briefing was performed at the end of the case. Physician-directed fluoroscopy for greater than one hour was performed by myself to verify fracture alignment and the safe placement of all internal fixation. The final images saved to PACs showed views demonstrating satisfactory alignment of the fracture and stable internal fixation. Implant verification was performed by myself by reading and confirming the im plant information on the packaging with the team before the sterile implants were opened. I was present for the entire procedure. Plan: Weight bearing status: nonweightbearing RLE Wound care: keep splint clean and dry Range of motion: of knee okay VTE Prophylaxis: lovenox Antibiotics: periop ancef Pain Control: multimodal, avoid NSAIDs Vitamin D Replacement: labs pending Discharge Plan: pending PT Follow Up: with myself in 2-3 weeks for wound check I attest to the content of the Intraoperative Record and any orders documented therein. Any exceptions are noted below.
--- NOTE | 2024-07-30 14:47 | Hospitalist Progress Note ---
Date of Service July 30, 2024 Assessment & Plan (1) Fall: Plan: Mechanical fall from a ladder while he was building a shed at his house. Supportive care. CThead: No intracranial abnormalities. CTC-spine: No acute fracture/subluxation. CTA/P: No acute intra-abdominal abnormality. No solid organ injury of the abdominal viscera. Acute nondisplaced right eighth rib fracture and costal cartilage fractures. X-ray pelvis: No fracture of the pelvis or hips (2) Calcaneus fracture, right: Plan: Orthopedic consult and recommendations appreciated. Nonweightbearing status. He underwent open reduction internal fixation of the right heel earlier today, July 30. Pain control measures (3) Closed rib fracture: Plan: Right side. No evidence of flail chest. Pain control measures (4) DM type 2 (diabetes mellitus, type 2): Plan: Controlled. ADA diet. Metformin has been restarted. He also takes Ozempic at home. Sliding scale coverage as needed. Last A1c 6.8% (5) COPD with emphysema: Plan: Stable. Continue current medical management (6) Coronary artery calcification: Plan: Stable. Continue current medical management (7) Constipation: Plan: Scheduled dosing of MiraLAX and Colace twice daily (8) Superficial thrombophlebitis of arm: Plan: Appears to be due to a previous IV site. Heating pad ordered Plan He might need temporary placement after right heel surgery before he can go home. Admission and Anticipated Discharge Date Admission Date: July 23, 2024 Subjective The patient is seen postoperatively after right heel surgery. He is somnolent from the anesthesia. Otherwise stable Review of Systems 2 Review of Systems: The patient is currently unable to answer any questions regarding review of systems Physical Exam 2 Physical Exam: General-somnolent from anesthesia after heel surgery arlier today, no fever HEENT-head atraumatic and normocephalic, pupils equal and reactive to light, extraocular muscles intact Neck-no lymphadenopathy or thyromegaly, trachea midline Chest-clear to auscultation. No rales, wheezing or rhonchi Cardiac-regular rate and rhythm, normal S1 and S2 Abdomen-normal bowel sounds, no hepatosplenomegaly Musculoskeletaltender right lateral ribs Extremities-no cyanosis, clubbing, or edema. Right foot and ankle are immobilized and heavily bandaged Neuro-somnolent. Cannot assess Psych-somnolent. Cannot assess Results & Data Results & Data Vital Signs (Past 12 Hours) Vital Signs Temp Pulse Pulse Pulse Resp BP BP 07/30/24 14:20 36.7 C 88 17 128/83 07/30/24 13:50 80 16 151/85 H 07/30/24 13:40 78 16 148/88 H 07/30/24 13:30 76 19 136/87 07/30/24 13:20 81 12 128/85 07/30/24 13:10 85 14 113/81 07/30/24 13:00 85 12 119/86 07/30/24 12:50 36.4 C L 84 15 112/74 07/30/24 12:40 84 13 126/82 07/30/24 12:30 87 12 111/86 07/30/24 12:20 90 15 129/87 07/30/24 12:10 90 14 118/75 07/30/24 12:03 36.1 C L 90 18 135/91 07/30/24 06:34 36.8 C 65 14 123/77 07/30/24 05:07 36.6 C 108 H 129/78 Pulse Ox O2 Del Method O2 Flow Rate 07/30/24 14:20 94 Nasal Cannula 2 07/30/24 13:50 93 Nasal Cannula 3 07/30/24 13:40 92 Nasal Cannula 3 07/30/24 13:30 94 Nasal Cannula 3 07/30/24 13:20 93 Nasal Cannula 3 07/30/24 13:10 92 Nasal Cannula 3 07/30/24 13:00 94 Nasal Cannula 4 07/30/24 12:50 92 Nasal Cannula 4 07/30/24 12:40 93 Nasal Cannula 4 07/30/24 12:30 95 Oxymask 7 07/30/24 12:20 95 Oxymask 15 07/30/24 12:10 92 Oxymask 15 07/30/24 12:03 92 Oxymask 15 07/30/24 06:34 95 Room Air 07/30/24 05:07 93 Room Air Laboratory Results 07/26/24 07:54 07/30/24 06:22 PG Care Time/CCT Total # of Minutes Spent Total Time Spent with Patient: Total time spent is greater than 50% in coordination of care (as documented) at patient's floor/unit and/or counseling patient: Coding Level of Care Code 13041 SUB INP/OBS CARE MIN Diagnoses Fall W19.XXXA Calcaneus fracture, right S92.001A Calcaneus location: body Encounter type: initial encounter Fracture type: closed Closed rib fracture S22.39XA Type 2 diabetes mellitus without complication, without long-term current use of insulin E11.9 Diabetes mellitus nursing home insulin use: without nursing home use Diabetes mellitus complication status: without complication COPD with emphysema J43.9 Coronary artery calcification I25.10; I25.84 Constipation K59.00 Superficial thrombophlebitis of arm I80.8 (2) Calcaneus fracture, right Calcaneus location: body Encounter type: initial encounter Fracture type: c losed (4) DM type 2 (diabetes mellitus, type 2) Diabetes mellitus nursing home insulin use: without beam sealer use Diabetes mellitus complication status: without complication Qualified Code(s): E11.9 - Type 2 diabetes mellitus without complications
[2024-07-30] MEDS: SODIUM CHLORIDE 0.9% 50 ML BAG ONE (14:56)
[2024-07-30] MEDS: PROMETHAZINE HCL INJ 25 MG/ML 1 ML VIAL ONE (14:56)
[2024-07-30] MEDS ORDERED: Nursing to Pharmacy Communication SCH (16:00)
[2024-07-30 17:23] VITALS: RESP 18
[2024-07-31] MEDS: HYDROmorphone INJ 1 MG/ML SYRINGE IV PRN (03:24)
--- NOTE | 2024-07-31 10:01 | Orthopedic Progress Note ---
Date of Service July 31, 2024 Assessment & Plan (1) Calcaneus fracture, right: Plan Patient doing well postoperative day #1 status post open reduction internal fixation calcaneus and extensile lateral approach. I reminded the patient this morning of the importance of keeping his limb elevated to prevent significant swelling. He should maintain nonweightbearing. Okay for DVT prophylaxis from an orthopedic standpoint. Multimodal pain control avoiding anti-inflammatory medications. Okay for PT/OT. Out of bed to chair 3 times daily with all meals. Patient will follow-up with me for wound check in 2 weeks. Admission and Anticipated Discharge Date Admission Date: July 23, 2024 Subjective patient resting comfortably in bed this morning. Notes pain in his right ankle. Overall no acute issues overnight. Review of Systems Review of Systems: Negative unless otherwise stated above Physical Exam Physical Exam: Right lower extremity splint in place. Clean and dry. Activates EHL/FHL. Does note some numbness on his foot secondary to block Results & Data Vital Signs (Past 12 Hours) Vital Signs Temp Pulse Pulse Pulse Resp BP BP 07/31/24 07:17 36.8 C 77 18 139/81 07/31/24 03:55 36.9 C 84 18 132/81 07/31/24 00:49 37.7 C H 07/30/24 23:23 37.8 C H 93 H 18 121/69 Pulse Ox O2 Del Method O2 Flow Rate 07/31/24 07:17 96 Nasal Cannula 2 07/31/24 03:55 96 Nasal Cannula 2 07/31/24 00:49 07/30/24 23:23 96 Nasal Cannula 2 Diagnostic Findings Postoperative images reviewed demonstrate stable internal fixation of calcaneus. (1) Calcaneus fracture, right Calcaneus location: body Encounter type: initial encounter Fracture type: closed
--- NOTE | 2024-07-31 11:37 | Hospitalist Progress Note ---
Date of Service July 31, 2024 Assessment & Plan (1) Fall: Plan: Mechanical fall from a ladder while he was building a shed at his house. Supportive care. CThead: No intracranial abnormalities. CTC-spine: No acute fracture/subluxation. CTA/P: No acute intra-abdominal abnormality. No solid organ injury of the abdominal viscera. Acute nondisplaced right eighth rib fracture and costal cartilage fractures. X-ray pelvis: No fracture of the pelvis or hips (2) Calcaneus fracture, right: Plan: Orthopedic consult and recommendations appreciated. Nonweightbearing status. He underwent open reduction internal fixation of the right heel on July 30. Postoperative day #1. Pain control measures (3) Closed rib fracture: Plan: Right side. No evidence of flail chest. Pain control measures (4) DM type 2 (diabetes mellitus, type 2): Plan: Controlled. ADA diet. He is metformin has been restarted. He also takes Ozempic at home. Sliding scale coverage as needed. Last A1c 6.8% (5) COPD with emphysema: Plan: Stable. Continue current medical management (6) Coronary artery calcification: Plan: Stable. Continue current medical management (7) Constipation: Plan: Scheduled dosing of MiraLAX and Colace twice daily (8) Superficial thrombophlebitis of arm: Plan: Appears to be due to a previous IV site in the medial right forearm area. Heating pad ordered. Resolving Plan To be determined. He might need temporary placement after right heel surgery before he can go home. Admission and Anticipated Discharge Date Admission Date: July 23, 2024 Subjective Alert and oriented. No distress. Postoperative day 1 after open reduction internal fixation of right heel fracture. Unfortunately he had postoperative urinary retention and required several straight cath procedures then and Browne catheter was inserted. Oxygen has been weaned off. Appreciate orthopedic surgery assistance Review of Systems 2 Review of Systems: Constitutionalno fever or chills ENTno blurred vision, no double vision, no epistaxis, no sore throat Respiratoryno cough, no wheezing, no shortness of breath Cardiacno palpitations, no chest pain, no syncope Becky nausea, vomiting, diarrhea, melena, hematochezia GUno urinary retention, no urinary incontinence, no dysuria, no hematuria Musculoskeletalno joint pain, no muscle tenderness Skinno bruising, no rashes, no pruritus Neurono isolated weakness, no paresthesia, no weakness Psychno depression, no anxiety Physical Exam 2 Physical Exam: General-alert and oriented x3, no fever, no chills HEENT-head atraumatic and normocephalic, pupils equal and reactive to light, extraocular muscles intact Neck-no lymphadenopathy or thyromegaly, trachea midline Chest-clear to auscultation. No rales, wheezing or rhonchi Cardiac-regular rate and rhythm, normal S1 and S2 Abdomen-normal bowel sounds, no hepatosplenomegaly Extremities-right lower extremity is immobilized and heavily bandaged Neuro-cranial nerves II through XII intact, motor and sensory function within normal limits, strength symmetrical, no focal deficits Psych-normal affect, normal mood Results & Data Results & Data Vital Signs (Past 12 Hours) Vital Signs Temp Pulse Pulse Resp BP BP Pulse Ox 07/31/24 07:30 07/31/24 07:17 36.8 C 77 18 139/81 96 07/31/24 03:55 36.9 C 84 18 132/81 96 07/31/24 00:49 37.7 C H O2 Del Method O2 Flow Rate 07/31/24 07:30 Nasal Cannula 2 07/31/24 07:17 Nasal Cannula 2 07/31/24 03:55 Nasal Cannula 2 07/31/24 00:49 Laboratory Results 07/26/24 07:54 07/30/24 06:22 PG Care Time/CCT Total # of Minutes Spent Total Time Spent with Patient: Total time spent is greater than 50% in coordination of care (as documented) at patient's floor/unit and/or counseling patient: Coding Level of Care Code 86179 SUB INP/OBS CARE 2/35MIN Diagnoses Fall W19.XXXA Calcaneus fracture, right S92.001A Calcaneus location: body Encounter type: initial encounter Fracture type: closed Closed rib fracture S22.39XA Type 2 diabetes mellitus without complication, without long-term current use of insulin E11.9 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
[2024-07-31] MEDS: COUGH DROP (SUGAR FREE) LOZ 24 LOZ/1 BOX BUCCAL ONE (17:08)
--- NOTE | 2024-07-31 19:01 | XRay Report ---
EXAM: XR calcaneus RT min 2V CLINICAL HISTORY: POST OP RT CALCANEAS TGB TECHNIQUE: X-ray images of the right heel were obtained in anteroposterior (AP), and lateral projections. COMPARISON: 07/27/2024. FINDINGS: Bone Structure: The comminuted fracture of the calcaneus bone is fixated, with no displaced fragment detected. Minimally displaced fragment at inferior cuboid. Joint Spaces: Joint spaces are normal. No evidence of joint effusion or subluxation. Soft Tissues: Soft tissues swelling, surrounding the ankle. Additional Findings: No signs of osteoarthritis, bone spurs, lytic or sclerotic lesions. IMPRESSION: 1. Well-fixated calcaneus fracture, no free fragment. 2. Minimally displaced fracture at inferior cuboid. Disclaimer: A subtle bone abnormality or fracture may not be readily apparent on X-rays, thus clinical correlation and further imaging including follow-up CT, MRI, or follow-up X-rays are advised as needed. Electronically signed by Chidi Miranda 07-31-2024 6:59 PM
[2024-08-01 06:14] LABS: Basophils # (auto) 0.06 K/uL (0.00-0.20); Basophils % (auto) 0.6 %; Eosinophils # (auto) 0.27 K/uL (0.00-0.50); Eosinophils % (auto) 2.5 %; Hematocrit (blood only) 37.8 % (42.0-52.0); Hemoglobin 12.6 g/dl (14.0-18.0); Immature Granulocytes # (auto) 0.03 K/uL (0.01-0.20); Immature Granulocytes % (auto) 0.3 %; Lymphocytes # (auto) 1.71 K/uL (1.20-3.40); Lymphocytes % (auto) 15.9 %; Mean Corpuscular Hgb Conc 33.3 g/dL (32.0-36.0); Mean Corpuscular Volume 86.9 fL (80.0-100.0); Mean Platelet Volume 8.8 fL (9.4-12.4); Monocytes # (auto) 1.25 K/uL (0.11-0.59); Monocytes % (auto) 11.6 %; Neutrophils # (auto) 7.45 K/uL (1.40-6.50); Neutrophils % (auto) 69.1 %; Platelet Count 387 K/uL (130-400); RDW Coefficient of Variation 12.7 % (11.5-14.5); RDW Standard Deviation 40.3 fL (36.4-46.3); Red Blood Count 4.35 M/uL (4.70-6.10); White Blood Count 10.77 K/ul (4.8-10.8)
[2024-08-01 06:26] LABS: BUN Creatinine Ratio 20.4 (10-20); Calcium 9.6 mg/dl (8.6-10.3); Creatinine Clr Calc Pharmacy 84.4 ml/min; Potassium 4.1 mmol/L (3.5-5.1)
[2024-08-01 07:19] VITALS: TEMP 98.2; O2SAT 97
--- NOTE | 2024-08-01 08:20 | Orthopedic Progress Note ---
Date of Service August 01, 2024 Assessment & Plan (1) Calcaneus fracture, right: Plan Patient doing well postoperative day #2 status post open reduction internal fixation calcaneus from an extensile lateral approach. I reminded the patient this morning of the importance of keeping his limb elevated to prevent significant swelling. He should maintain nonweightbearing. Okay for DVT prophylaxis from an orthopedic standpoint. Multimodal pain control avoiding anti-inflammatory medications. Okay for PT/OT. Out of bed to chair 3 times daily with all meals. Patient will follow-up with me for wound check in 2 weeks. Admission and Anticipated Discharge Date Admission Date: July 23, 2024 Subjective Patient doing well postoperative day #2 status post open reduction and internal fixation right calcaneus. Notes some nausea this morning. Review of Systems Review of Systems: Negative unless otherwise stated above Physical Exam Physical Exam: Right lower extremity splint in place. Clean and dry. Activates EHL/FHL. Does note some numbness on his foot secondary to block Results & Data Vital Signs (Past 12 Hours) Vital Signs Temp Pulse Resp BP Pulse Ox O2 Del Method 08/01/24 07:16 36.8 C 72 18 122/78 97 Room Air 08/01/24 05:48 36.7 C (1) Calcaneus fracture, right Calcaneus location: body Encounter type: initial encounter Fracture type: closed
[2024-08-01] MEDS: ONDANSETRON INJ 2 MG/ML 2 ML VIAL IV PRN (08:26)
--- NOTE | 2024-08-01 09:51 | Discharge Summary ---
Discharge Summary Date of Service August 01, 2024 Principal Dx & Hospital Course #1 = Principal Diagnosis (1) Fall: Mechanical fall from a ladder while he was building a shed at his house. Supportive care. CThead: No intracranial abnormalities. CTC-spine: No acute fracture/subluxation. CTA/P: No acute intra-abdominal abnormality. No solid organ injury of the abdominal viscera. Acute nondisplaced right eighth rib fracture and costal cartilage fractures. X-ray pelvis: No fracture of the pelvis or hips (2) Calcaneus fracture, right: Orthopedic consult and recommendations appreciated. Nonweightbearing status. He underwent open reduction internal fixation of the right heel on July 30. Postoperative day #2. Pain control measures (3) Closed rib fracture: Right side. No evidence of flail chest. Pain control measures (4) DM type 2 (diabetes mellitus, type 2): Controlled. ADA diet. He is metformin has been restarted. He also takes Ozempic at home. Sliding scale coverage as needed. Last A1c 6.8% (5) COPD with emphysema: Stable. Continue current medical management (6) Coronary artery calcification: Stable. Continue current medical management (7) Constipation: Scheduled dosing of MiraLAX and Colace twice daily (8) Superficial thrombophlebitis of arm: Appears to be due to a previous IV site in the medial right forearm area. Heating pad application 2 or 3 times a day until resolved. (9) Postoperative urinary retention: Browne catheter is now in place. This can be removed within the next day or 2 and a voiding trial undertaken Plan Discharge to [facility] today, August 01 Admission HPI Per Admitting Provider Baltazar is a 68-year-old male with a past medical history of type 2 diabetes, COPD, CAD, BPH with LUTS who is not on any antiplatelet agents or anticoagulants who was on a ladder when he lost his balance and slipped. This caused him to fall down he landed with his right leg extended and then fell to the right side. No head strike or loss of consciousness. Patient was evaluated by orthopedics. Patient was stable for discharge however due to nonweightbearing on the right extremity and pain from the rib fracture limited ability to use crutches was not able to ambulate independently and has been recommended for admission and placement. Baltazar is seen at the bedside. 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 He did not hit his head or lose consciousness. He has no headache. No lightheadedness, dizziness. He does have pain in his right ribs where he hit them on the ladder. He has no left-sided chest pain and has no anginal symptoms. He reports he is very active and has had no limiting chest pain although sometimes gets some shortness of breath with his emphysema. Former smoker. Rare social alcohol use. No abdominal pain. He is not able to bear weight on his right leg due to discomfort in splint. Does have some pain on the outer portion of his left lower leg which feels sore. He takes no anticoagulants or antiplatelet agents. Medical History: Reviewed Medications: Reviewed Surgical History: Reviewed Family history: Reviewed Allergies: Reviewed Social History: Former smoker. Rare social ETOH Code Status: Full Discharge Exam General-alert and oriented x3, no fever, no chills HEENT-head atraumatic and normocephalic, pupils equal and reactive to light, extraocular muscles intact Neck-no lymphadenopathy or thyromegaly, trachea midline Chest-clear to auscultation. No rales, wheezing or rhonchi Cardiac-regular rate and rhythm, normal S1 and S2 Abdomen-normal bowel sounds, no hepatosplenomegaly Extremities-right lower extremity is immobilized and heavily bandaged Neuro-cranial nerves II through XII intact, motor and sensory function within normal limits, strength symmetrical, no focal deficits Psych-normal affect, normal mood Discharge Plan Discharge Items Patient Disposition: Transfer Inpatient Rehab Fac Reason For Visit: TRAUMA, R CALCANEAL, R RIB FXR Discharge Diagnosis: Fall from ladder, right heel fracture, right rib fracture, superficial thrombophlebitis from IV right volar forearm, postoperative urinary retention Activity: Per Instructions section Non-emergency contact: Primary Care Provider and Surgeon Call non-emergency contact if: your symptoms worsen Follow-up/Referrals: Kiera Pang PA-C [Primary Care Provider] - Diet: Carb Consistent or DM2 Addtl Attending Provider Instructions: Follow orthopedic instructions regarding weightbearing. May use heat applications for 20 minutes 3 times a day to the right forearm superficial thrombophlebitis until it is resolved. Follow-up with orthopedic surgeon after discharge from [facility]. Browne catheter will be removed at [facility] in the next day or 2 and a voiding trial will occur Pending Studies at Discharge: No Stand-Alone Forms: My [facility] Skilled Items Patient informed of condition?: Yes DNR: No Discharge Level of Care: Acute rehab Communicable Disease: No Discharge Prognosis: Stable Lines: None Urinary Catheter: Yes Medications and DC Order Prescriptions: New cholecalciferol (vitamin D3) [Vitamin D3] 10 mcg (400 unit) Tablet 10 mcg PO QAM Qty: 0 0RF nystatin-triamcinolone 100,000-0.1 unit/gram-% Ointment 1 applic EXT BID Qty: 0 0RF docusate sodium 100 mg Capsule 100 mg PO BID Qty: 0 0RF oxycodone [OxyContin] 10 mg Tablet,Oral Only,Ext.Rel.12 Hr 10 mg PO Q6H PRN (Reason: pain) Qty: 0 0RF polyethylene glycol 3350 [Miralax] 17 gram Powder In Packet 17 g PO BID Qty: 0 0RF Continued atorvastatin 10 mg tablet 10 mg PO QAM Qty: 90 3RF epinephrine [EpiPen] 0.3 mg/0.3 mL auto-injector 0.3 mg IM Q10M PRN (Reason: Anaphylaxis) Qty: 2 3RF omeprazole 20 mg capsule,delayed release(DR/EC) 20 mg PO DAILY Qty: 90 1RF Stiolto Respimat 2.5-2.5 mcg/actuation mist 2 puff inhalation DAILY Qty: 4 12RF metformin 500 mg tablet extended release 24 hr 500 mg PO DAILY Ozempic 0.25 mg or 0.5 mg (2 mg/3 mL) pen injector 1 mg subcut Q7D Rx Instructions: Tuesdays at 10 am potassium gluconate 600 mg (99 mg) tablet 600 mg PO DAILY Rx Instructions: Take 1 po daily tamsulosin [Flomax] 0.4 mg Capsule 0.8 mg PO QAM Vitamin D3 1 tab PO DAILY Discharge Orders: Discharge Order (Routine); Ordered 08/01/24 Ordered By: Yuan Olsen Admission Data Admit Date/Time: 07/23/24 20:02 Attending Provider: Yuan Olsen Admit Provider: Freddie Del Valle Primary Care Provider: Kiera Pang Other Providers: [facility]; [facility]; Freddie Del Valle; Freddie Rodriguez; Riki Ray Hospital Stay Data Consultations 07/23/24 19:37 ED Decision to Admit Stat 07/23/24 19:56 Consult Orthopedic Surgery Routine 07/27/24 12:22 Consult Orthopedic Surgery Routine Procedures Performed Operation Date: 07/30/24 07:15 Actual Procedures p Right Calcaneal Fracture Open Reduction Internal Fixation(Right) - Riki Ray DO Diagnostic Imagining Performed 07/23/24 15:06 CT abd pelvis IV con only Stat CT cervical spine wo con Stat CT chest diagnostic w con Stat CT head/brain wo con Stat CT lumbar spine w con Stat 07/24/24 10:39 CT ankle RT wo con Routine 07/30/24 07:03 US - OR guided needle placemen Routine 07/30/24 07:15 FL heel RT 2V Routine Pending Results Patient Have Any Pending Studies at Discharge: No Discharge Instructions Given to Patient (Per Discharging Provider) Follow orthopedic instructions regarding weightbearing. May use heat applications for 20 minutes 3 times a day to the right forearm superficial thrombophlebitis until it is resolved. Follow-up with orthopedic surgeon after discharge from [facility]. 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
[2024-08-01 10:27] VITALS: BP 132/81; PULSE 93
== END 2024-08-01 14:23 | DRG 504 ==
LOC: ED 14:12 → SUATTDRO 20:02 → 2S 20:02 → 3W 07-25 18:21